=== PATIENT | male | born 1970 | race Caucasian/White ===

== ENCOUNTER 2017-01-29 21:09 | Emergency (ER) | payer SELFPAY ==
[~2017-01-29] VITALS: Ht 175.3 cm; Wt 144.0 kg
[~2017-01-29 21:09] MED LIST: AUGM875 PO; MELO15TA2 PO; ROBA750T3 PO
[2017-01-29 21:13] VITALS: BP 142/82; PULSE 97; RESP 20; TEMP 97.7; O2SAT 95
[2017-01-29] MEDS ORDERED: BUSP10TA PO (21:29)
[2017-01-29] MEDS ORDERED: SERT25TA83 PO (21:29)
[2017-01-29] MEDS ORDERED: CYCLOBENZAPRINE HCL 10 MG TAB PO ONE (22:00)
[2017-01-29] MEDS: MORPHINE SULFATE 4 MG/ML INJ IV ONE ×2 (22:00→22:11)
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
[2017-01-29] MEDS: MORPHINE SULFATE 8 MG/ML INJ ONE (22:11)
[2017-01-29] MEDS ORDERED: LORazepam 2 MG/ML VIAL IV PUSH ONE (23:00)
[2017-01-29] MEDS ORDERED: HYDROmorphone HCL PF 2 MG/ML VIAL IV PUSH ONE (23:00)
[2017-01-29 23:10] VITALS: BP 172/102; PULSE 87; RESP 18; O2SAT 95
--- NOTE | 2017-01-29 23:10 | RADRPT ---
EXAM DATE/TIME: 01/29/2017 22:10 [facility] COMPARISON: No previous studies available for comparison. INDICATIONS : Right hip pain for three days. MEDICAL HISTORY : None. SURGICAL HISTORY : None. ENCOUNTER: Initial ACUITY: 3 days PAIN SCORE: 10/10 LOCATION: Right hip. FINDINGS: Examination of the right hip was performed with AP Pelvis. The primary and secondary trabecular jennifer daryn of the femoral neck is intact. The hip joint is of normal width without significant sclerosis or bony hypertrophy. The acetabulum is grossly intact. There is calcific density adjacent to the great er trochanter on the right likely hydroxyapatite deposition. CONCLUSION: Probable calcific tendinosis right. No fractures are seen. Lonnie Vickers MD on January 29, 2017 at 23:07 Board Certified Radiologist. This report was verified electronically.
[2017-01-29] MEDS ORDERED: PRED10PA2 PO (23:23)
[2017-01-29] MEDS ORDERED: PERC5TAB12 PO (23:23)
--- NOTE | 2017-01-29 23:28 | RADRPT ---
EXAM DATE/TIME: 01/29/2017 22:25 [facility] COMPARISON: No previous studies available for comparison. INDICATIONS : Low back and hip pain with urine incontinence. RADIATION DOSE: 40.32 CTDIvol (mGy) ; Patient body habitus MEDICAL HISTORY : None SURGICAL HISTORY : None. ENCOUNTER: Initial ACUITY: 3 days PAIN SCALE: 10/10 LOCATION: Bilateral flank TECHNIQUE: Volumetric scanning of the lumbar spine was performed. Multiplanar reconstructions in the sagittal, coronal and oblique axial planes were performed. Using automated exposure control and adjustment of the mA and/or kV according to patient size, radiation dose was kept as low as reasonably achievable t o obtain optimal diagnostic quality images. DICOM format image data is available electronically for review and comparison. FINDINGS: VERTEBRAE: Normal vertebral body height. ALIGNMENT: No evidence of subluxation. T12-L1: The thecal sac has a normal diameter. No evidence of disc bulge or protrusion. The neural foramina are patent bilaterally. L1-L2: The thecal sac has a normal diameter. No evidence of disc bulge or protrusion. The neural foramina are patent bilaterally. L2-L3: The thecal sac has a normal diameter. No evidence of disc bulge or protrusion. The neural foramina are patent bilaterally. L3-L4: The thecal sac has a normal diameter. No evidence of disc bulge or protrusion. The neural foramina are patent bilaterally. L4-L5: The thecal sac has a normal diameter. No evidence of disc bulge or protrusion. The neural foramina are patent bilaterally. L5-S1: The thecal sac has a normal diameter. No evidence of disc bulge or protrusion. The neural foramina are patent bilaterally. CONCLUSION: Normal examination for a patient of this age. Lonnie Vickers MD on January 29, 2017 at 23:26 Board Certified Radiologist. This report was verified electronically.
== END 2017-01-29 23:51 | disposition home or self-care (01) ==
LOC: PHED 21:09
DX: M25.551 Pain in right hip (principal); M65.251 Calcific tendinitis, right thigh
CPT/HCPCS: 72131; 73502; 96374; 96375; 99285; J1170; J2060; J2270

== ENCOUNTER 2017-06-26 22:07 | Inpatient (IN) | payer OTHER ==
[~2017-06-26] VITALS: Ht 175.3 cm; Wt 137.5 kg
[~2017-06-26 22:07] MED LIST changes: -AUGM875 PO; +BUSP10TA PO; -MELO15TA2 PO; +PERC5TAB12 PO; +PRED10PA2 PO; -ROBA750T3 PO; +SERT25TA83 PO
[2017-06-26 22:20] VITALS: O2SAT 95
[2017-06-26] MEDS ORDERED: ONDANSETRON HCL 4 MG/2 ML VIAL ONE (22:21)
[2017-06-26] MEDS ORDERED: MORPHINE SULFATE 8 MG/ML INJ ONE (22:22)
[2017-06-26] MEDS ORDERED: SODIUM CHLOR 0.9% 1000 ML INJ 1,000 ML IV SCH (22:27)
[2017-06-26] MEDS ORDERED: MORPHINE SULFATE 4 MG/ML INJ IV PUSH ONE ×2 (22:30→22:45)
[2017-06-26] MEDS ORDERED: ceFAZolin 2 GM PREMIX 50 ML IV ONE (22:30)
[2017-06-26] MEDS ORDERED: ONDANSETRON HCL 4 MG/2 ML VIAL IV PUSH ONE (22:30)
[2017-06-26] MEDS ORDERED: ceFAZolin 2 GM PREMIX 50 ML ONE (22:31)
[2017-06-26 22:41] LABS: AUTOMATED NEUTROPHIL # 11.1 TH/MM3 (1.8-7.7); BASOPHIL # 0.1 TH/MM3 (0-0.2); BASOPHIL % 0.3 % (0.0-2.0); EOSINOPHIL # 0.2 TH/MM3 (0-0.4); EOSINOPHIL % 1.4 % (0.0-4.0); HEMATOCRIT 46.8 % (39.0-51.0); HEMOGLOBIN 15.7 GM/DL (13.0-17.0); LYMPH % 24.1 % (9.0-44.0); MEAN CELL VOLUME 79.8 FL (80.0-100.0); MEAN CORPUSCULAR HEMOGLOBIN 26.7 PG (27.0-34.0); MEAN CORPUSCULAR HGB CONC 33.5 % (32.0-36.0); MEAN PLATELET VOLUME 7.8 FL (7.0-11.0); MONO % 7.2 % (0.0-8.0); MONOCYTE # 1.2 TH/MM3 (0-0.9); PLATELET COUNT 276 TH/MM3 (150-450); RED BLOOD COUNT 5.86 MIL/MM3 (4.50-5.90); RED CELL DISTRIBUTION WIDTH 15.9 % (11.6-17.2); WHITE BLOOD COUNT 16.5 TH/MM3 (4.0-11.0)
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
[2017-06-26 22:56] LABS: PROTHROMBIN TIME - PATIENT 10.2 SEC (9.8-11.6)
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
[2017-06-26] MEDS ORDERED: IOHEXOL 350 MG/ML 10 ML VIAL (for RAD DIAG) IVCONTRAST ONE (23:00)
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
[2017-06-26] MEDS ORDERED: LIDOCAINE HCL 1% 50 ML VIAL INFIL ONE (23:30)
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
[2017-06-27] VITALS (19 sets, daily range): BP systolic 83–167; BP diastolic 44–78; PULSE 76–113; RESP 19–27; TEMP 98.1–100.9; O2SAT 87–100
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
[2017-06-27] MEDS ORDERED: HYDROmorphone HCL PF 1 MG/ML VIAL IV PUSH ONE (01:00)
[2017-06-27] MEDS ORDERED: LACTULOSE SYRUP 20 GM/30 ML CUP PO PRN (01:30)
[2017-06-27] MEDS ORDERED: SENNOSIDES 8.6 MG TAB PO PRN (01:30)
[2017-06-27] MEDS ORDERED: CHLORHEXIDINE GLUCONATE 2 % 1 PACK (2 CLOTHS) TOP PRN (01:30)
[2017-06-27] MEDS ORDERED: MAGNESIUM HYDROXIDE SUSP 30 ML CUP PO PRN (01:30)
[2017-06-27] MEDS ORDERED: ONDANSETRON HCL 4 MG/2 ML VIAL IV PUSH PRN (01:30)
[2017-06-27] MEDS ORDERED: MISCELLANEOUS NURSING INFORMATION XX SCH (01:30)
[2017-06-27] MEDS ORDERED: BISACODYL 10 MG SUPP RECTAL PRN (01:30)
[2017-06-27] MEDS ORDERED: RESP: ALBUTEROL 2.5 MG/3 ML NEB (SCH) INH ONE (01:30)
[2017-06-27] MEDS ORDERED: NALOXONE HCL 0.4 MG/ML AMP IV PUSH PRN (01:45)
[2017-06-27] MEDS ORDERED: PCA - TOTAL MG MORPHINE DELIVERED PER SHIFT SCH (01:45)
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
[2017-06-27] MEDS: MORPHINE SULFATE 30 MG/30 ML PCA IV SCH ×2 (02:54→08:06)
[2017-06-27] MEDS: SODIUM CHLOR 0.9% 1000 ML INJ 1,000 ML IV SCH ×5 (03:00→17:38)
[2017-06-27] MEDS: ACETAMINOPHEN 1000 MG/100 ML 100 ML IV SCH ×4 (03:10→19:03)
[2017-06-27] MEDS: ceFAZolin 2 GM PREMIX 50 ML IV SCH ×3 (03:11→20:23)
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
[2017-06-27] MEDS: CHLORHEXIDINE GLUCONATE 2 % 1 PACK (2 CLOTHS) TOP SCH (04:00)
[2017-06-27] MEDS: RESP: ALBUTEROL 2.5 MG/IPRATROPIUM 0.5 MG NEB (SCH) INH ×5 (04:11→21:17)
[2017-06-27] MEDS: FAMOTIDINE 20 MG/2 ML VIAL IV PUSH SCH ×2 (04:15→16:36)
--- NOTE | 2017-06-27 05:14 | RADRPT ---
EXAM DATE/TIME: 06/27/2017 03:38 [place] COMPARISON: CHEST SINGLE AP, June 26, 2017, 22:27. INDICATIONS : Evaluate for pneumonia post Trauma MEDICAL HISTORY : None. SURGICAL HISTORY : None. ENCOUNTER: Subsequent ACUITY: 1 day PAIN SCORE: 7/10 LOCATION: Bilateral chest FINDINGS: A single view of the chest demonstrates the lungs to be symmetrically aerated without evidence of mas s, infiltrate or effusion. No evidence of pneumothorax. The cardiomediastinal contours are unremark able. Osseous structures are intact. CONCLUSION: The lungs are clear. Perfecto Veloz MD on June 27, 2017 at 5:13 Board Certified Radiologist. This report was verified electronically.
[2017-06-27] MEDS: DOCUSATE SODIUM 50 MG/SENNA 8.6 MG TAB PO SCH ×2 (07:46→20:18)
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
[2017-06-27] MEDS ORDERED: LACTATED RINGER'S 1000 ML INJ 1,000 ML IV ONE (10:00)
[2017-06-27] MEDS ORDERED: MIDAZOLAM HCL 5 MG/ML VIAL (1 ML) ONE (11:00)
[2017-06-27] MEDS ORDERED: ETOMIDATE 40 MG/20 ML VIAL ONE (11:00)
[2017-06-27] MEDS ORDERED: ROCURONIUM INJ 50 MG/5 ML VIAL ONE (11:01)
--- NOTE | 2017-06-27 11:31 | PD.PROCEDR ---
Procedure Note Procedure Consent: Emergency intubation for severe hypercapneic and hypoxic respiratory failure, severe sleep apnea and rib fracture INTUBATION: The patient was put in optimal position for the procedure. Rapid sequence intubation was initiated by me using 10 milligrams of Versed IV, 20 mg Versed IV and Rocuronium 50 mg IV. Glidescope was used with #4 blade grade 1 view single attempt. Intubated with #8 ETT. Tube placement was confirmed by visualization of the tube and balloon passing through the cords, capnometry and subsequent chest x-ray. Breath sounds were equal and well aerated bilaterally postintubation. No breath sounds over stomach. Patient tolerated procedure well. Maurice Vargas MD Jun 27, 2017 11:31
[2017-06-27] MEDS ORDERED: fentaNYL DRIP 250 ML IV PRN (11:45)
[2017-06-27] MEDS: RESP: ACETYLCYSTEINE 10% 30 ML NEB NEB SCH ×3 (12:00→21:17)
[2017-06-27] MEDS ORDERED: PROPOFOL 500 MG/50 ML INJ 50 ML ONE (12:00)
[2017-06-27 12:23] LABS: HEMATOCRIT 36.6 % (39.0-51.0); HEMOGLOBIN 11.8 GM/DL (13.0-17.0); MEAN CELL VOLUME 82.4 FL (80.0-100.0); MEAN CORPUSCULAR HEMOGLOBIN 26.6 PG (27.0-34.0); MEAN CORPUSCULAR HGB CONC 32.3 % (32.0-36.0); MEAN PLATELET VOLUME 7.4 FL (7.0-11.0); PLATELET COUNT 182 TH/MM3 (150-450); RED BLOOD COUNT 4.44 MIL/MM3 (4.50-5.90); WHITE BLOOD COUNT 9.7 TH/MM3 (4.0-11.0)
[2017-06-27 12:47] LABS: ALBUMIN 2.3 GM/DL (3.4-5.0); BICARBONATE 22.8 MEQ/L (21.0-32.0); CALCIUM 7.3 MG/DL (8.5-10.1); CALCIUM-PROTEIN CORRECTED 8.6 MG/DL (8.5-10.1); CREATININE 1.19 MG/DL (0.60-1.30); TOTAL BILIRUBIN ADULT 0.4 MG/DL (0.2-1.0); TOTAL PROTEIN 4.8 GM/DL (6.4-8.2)
[2017-06-27] MEDS: KETOROLAC TROMETHAMINE 30 MG/ML (IVP) VIAL IV PUSH SCH ×3 (12:48→23:29)
[2017-06-27] MEDS: ENOXAPARIN SODIUM 40 MG/0.4 ML SYRINGE SQ SCH (12:48)
--- NOTE | 2017-06-27 12:57 | RADRPT ---
EXAM DATE/TIME: 06/27/2017 12:04 [facility] COMPARISON: CHEST SINGLE AP, June 27, 2017, 3:38. INDICATIONS : Post intubation. MEDICAL HISTORY : None. SURGICAL HISTORY : None. ENCOUNTER: Initial ACUITY: 1 day PAIN SCORE: Non-responsive. LOCATION: Bilateral chest FINDINGS: A single view of the chest demonstrates the lungs to be hypoinflated with minimal bibasilar atelectat ic changes. No confluent infiltrate or effusion. Accounting for low lung lines, the heart size is bor derline prominent but well compensated. Interval placement of an endotracheal tube with the tip appro ximately 1.5 cm above the anne. A gastric tube enters the stomach and extends off the inferior aspe ct of the image. CONCLUSION: 1. Interval intubation with the endotracheal tube approximately 1.5 cm above the anne. 2. Minimal bibasilar atelectatic changes. Competent cardiomegaly. 3. Nasogastric tube traverses the GE junction with the tip extending off the inferior aspect of the i mage. Umesh Carbone MD on June 27, 2017 at 12:54 Board Certified Radiologist. This report was verified electronically.
[2017-06-27] MEDS: PROPOFOL 1000 MG/100 ML INJ 100 ML IV PRN ×2 (13:48→18:45)
[2017-06-27] MEDS ORDERED: ETOMIDATE 20 MG/10 ML VIAL IV PUSH ONE (14:00)
[2017-06-27] MEDS ORDERED: ROCURONIUM INJ 50 MG/5 ML VIAL IV PUSH ONE (14:00)
[2017-06-27] MEDS ORDERED: MIDAZOLAM HCL 5 MG/ML VIAL (1 ML) IV PUSH ONE (14:15)
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
[2017-06-27] MEDS ORDERED: NOREPINEPHRINE-DEXTROSE DRIP 250 ML IV ONE (18:14)
--- NOTE | 2017-06-27 18:32 | PD.PROCEDR ---
Central Line Procedure REASON FOR PROCEDURE Central venous access PROCEDURE PERFORMED Central line placement: LIJ central line US guided CONSENT Informed consent for procedure was obtained and time out performed. The risks and benefits of the procedure were discussed to include but limited to bleeding , clot formation, infection, and even . ANESTHESIA Local injection of 1% Lidocaine DESCRIPTION OF THE PROCEDURE The patient was placed in supine, mild Trendelenburg position. The area was exposed and cleansed with ChloraPrep, times two. Large sterile drape was used to cover the patient, with the site exposed, under sterile conditions including cap, face mask, sterile gown, and sterile gloves. On single attempt, the introducer needle was inserted with negative pressure in syringe and venous flash was obtained. The guide wire was then advanced without any restriction and the needle was removed. The dilator was used without any complications. Using Seldinger technique the 20 cm 7F triple lumen catheter was advanced over the guide wire to a depth of 18 centimeters. The guide wire was removed. All ports were aspirated with dark venous blood return and flushed easily with sterile saline. All ports were capped. Antibiotic disc was placed around central line at puncture site. The central line was secured to the skin with two interrupted 2.0 silk sutures. The area was bandaged with sterile see- through central line bandage. RADIOLOGICAL DATA Ultrasound guidance was used to locate LIJ. COMPLICATIONS: No apparent complications ESTIMATED BLOOD LOSS: Less than 1 cc. Maurice Vargas MD Jun 27, 2017 18:32
[2017-06-27] MEDS ORDERED: TERBUTALINE INJ 1 MG/ML AMP SQ PRN (19:00)
[2017-06-27] MEDS: NOREPINEPHRINE INJ 4 MG in SODIUM CHLOR 0.9% 250 ML INJ 246 ML IV PRN ×2 (19:03→19:55)
--- NOTE | 2017-06-27 19:27 | RADRPT ---
EXAM DATE/TIME: 06/27/2017 18:44 [facility] COMPARISON: CHEST SINGLE AP, June 27, 2017, 12:04. INDICATIONS : Post central line placement. MEDICAL HISTORY : None. SURGICAL HISTORY : None. ENCOUNTER: Subsequent ACUITY: 1 day PAIN SCORE: Non-responsive. LOCATION: Bilateral chest FINDINGS: Endotracheal tube in good position. NG enters stomach. Left internal jugular central line in superior vena cava. Bilateral mostly basilar airspace disease and right perihilar airspace disease is present , increased from June 27 exam earlier today. No pneumothorax. CONCLUSION: 1. Placement of left IJ line in superior vena cava. Slight increase in right lung consolidation over the last day. Arias Jurado MD on June 27, 2017 at 19:25 Board Certified Radiologist. This report was verified electronically.
[2017-06-27] MEDS ORDERED: CHLORHEXIDINE 0.12% (ORAL KIT) 15 ML CUP MT SCH (20:00)
[2017-06-28] VITALS (21 sets, daily range): BP systolic 100–124; BP diastolic 51–68; PULSE 72–90; RESP 20; TEMP 97.9–101.1; O2SAT 95–100
[2017-06-28] MEDS: RESP: ACETYLCYSTEINE 10% 30 ML NEB NEB SCH ×7 (00:04→23:27)
[2017-06-28] MEDS: CHLORHEXIDINE GLUCONATE 2 % 1 PACK (2 CLOTHS) TOP SCH (00:05)
[2017-06-28] MEDS: RESP: ALBUTEROL 2.5 MG/IPRATROPIUM 0.5 MG NEB (SCH) INH ×7 (00:05→23:27)
[2017-06-28] MEDS: NOREPINEPHRINE INJ 4 MG in SODIUM CHLOR 0.9% 250 ML INJ 246 ML IV PRN (02:37)
[2017-06-28] MEDS: PROPOFOL 1000 MG/100 ML INJ 100 ML IV PRN ×3 (02:37→08:04)
[2017-06-28 05:20] LABS: AUTOMATED NEUTROPHIL # 15.1 TH/MM3 (1.8-7.7); BASOPHIL # 0.2 TH/MM3 (0-0.2); EOSINOPHIL % 0.1 % (0.0-4.0); HEMATOCRIT 38.5 % (39.0-51.0); HEMOGLOBIN 12.9 GM/DL (13.0-17.0); LYMPH % 9.5 % (9.0-44.0); LYMPHOCYTE # 1.8 TH/MM3 (1.0-4.8); MEAN CELL VOLUME 80.6 FL (80.0-100.0); MEAN CORPUSCULAR HGB CONC 33.5 % (32.0-36.0); MEAN PLATELET VOLUME 7.8 FL (7.0-11.0); MONOCYTE # 1.5 TH/MM3 (0-0.9); NEUT % 81.4 % (16.0-70.0); PLATELET COUNT 222 TH/MM3 (150-450); RED BLOOD COUNT 4.78 MIL/MM3 (4.50-5.90); RED CELL DISTRIBUTION WIDTH 15.5 % (11.6-17.2); WHITE BLOOD COUNT 18.5 TH/MM3 (4.0-11.0)
[2017-06-28] MEDS: KETOROLAC TROMETHAMINE 30 MG/ML (IVP) VIAL IV PUSH SCH ×3 (05:24→18:00)
[2017-06-28] MEDS: ceFAZolin 2 GM PREMIX 50 ML IV SCH ×3 (05:28→20:04)
[2017-06-28] MEDS: SODIUM CHLOR 0.9% 1000 ML INJ 1,000 ML IV SCH ×2 (05:28→17:00)
[2017-06-28] MEDS: FAMOTIDINE 20 MG/2 ML VIAL IV PUSH SCH ×2 (05:28→16:22)
[2017-06-28 05:42] LABS: BICARBONATE 22.1 MEQ/L (21.0-32.0); CALCIUM 7.5 MG/DL (8.5-10.1); CREATININE 1.32 MG/DL (0.60-1.30)
--- NOTE | 2017-06-28 06:16 | RADRPT ---
EXAM DATE/TIME: 06/28/2017 04:56 [facility] COMPARISON: CHEST SINGLE AP, June 27, 2017, 18:44. INDICATIONS : Short of breath. MEDICAL HISTORY : None. SURGICAL HISTORY : None. ENCOUNTER: Subsequent ACUITY: 2 days PAIN SCORE: Non-responsive. LOCATION: Bilateral chest FINDINGS: ET tube tip slightly above the level of the anne. Gastric tube and left central line stable. Ther e is persisting consolidation left lower lung and patchy infiltrates in the right perihilar and right infrahilar region. CONCLUSION: 1. Persistent bilateral infiltrates. 2. ETT tip is approximately 1 cm above the anne. Perfecto Veloz MD on June 28, 2017 at 6:14 Board Certified Radiologist. This report was verified electronically.
[2017-06-28] MEDS: CHLORHEXIDINE 0.12% (ORAL KIT) 15 ML CUP MT SCH ×2 (08:00→20:04)
[2017-06-28] MEDS: MIDAZOLAM 100 MG/100 ML INJ 100 ML IV PRN (08:03)
--- NOTE | 2017-06-28 08:10 | PD.ORT.PN ---
Subjective Subjective Remarks Intubated but stable Objective Vitals Vital Signs Date Time Temp Pulse Resp B/P (MAP) Pulse Ox O2 Delivery O2 Flow Rate FiO2 06/28/17 06:00 87 06/28/17 05:01 96 50 06/28/17 04:00 99.7 81 20 100/53 (69) 97 06/28/17 04:00 50 06/28/17 04:00 81 06/28/17 03:56 96 50 06/28/17 02:37 92 96/50 06/28/17 02:00 90 06/28/17 00:05 95 50 06/28/17 00:00 50 06/28/17 00:00 90 06/28/17 00:00 101.1 90 20 103/51 (68) 95 06/27/17 22:16 100 100 06/27/17 22:00 84 06/27/17 20:48 100 50 06/27/17 20:00 100.9 82 20 83/44 (57) 100 06/27/17 20:00 50 06/27/17 20:00 76 06/27/17 19:55 77 87/48 06/27/17 19:03 84 85/51 06/27/17 19:00 100 Mechanical Ventilator 50 06/27/17 18:00 90 06/27/17 16:23 100 50 06/27/17 16:00 98.1 86 20 84/48 (60) 100 06/27/17 16:00 50 06/27/17 16:00 86 06/27/17 14:00 90 06/27/17 12:18 100 50 06/27/17 12:00 112 06/27/17 12:00 98.1 112 20 167/70 (102) 97 06/27/17 12:00 50 06/27/17 11:40 95 100 06/27/17 10:20 50 06/27/17 10:00 98 06/27/17 09:23 99 45 06/27/17 08:11 26 I/O 06/27/17 06/27/17 06/27/17 06/28/17 06/28/17 06/28/17 07:00 15:00 23:00 07:00 15:00 23:00 Intake Total 1200 ml 1150 ml 3181 ml 2319 ml Output Total 300 ml 850 ml 900 ml Balance 900 ml 1150 ml 2331 ml 1419 ml Intake IV Total 1200 ml 1150 ml 3181 ml 2319 ml Output Urine Total 300 ml 600 ml 750 ml Gastric Drainage Total 250 ml 150 ml # Bowel Movements 0 0 0 Result Diagram: 06/28/17 0500 06/28/17 0500 Imaging Last 24 hours Impressions Chest X-Ray 06/27/17 0600 Signed Impressions: Service Date/Time: Tuesday, June 27, 2017 03:38 - CONCLUSION: The lungs are clear. Perfecto Veloz MD Knee X-Ray 06/27/17 0000 Signed Impressions: Service Date/Time: Tuesday, June 27, 2017 00:49 - CONCLUSION: 1. Osseous structures about the knee are grossly intact. 2. Fracture mid shaft of the fibula, partially included in the [id number]. Perfecto Veloz MD Thoracic Spine CT 06/26/172226 Signed Impressions: Service Date/Time: Monday, June 26, 2017 23:02 - CONCLUSION: Negative trauma CT of the thoracic spine. Perfecto Veloz MD Pelvis X-Ray 06/26/172226 Signed Impressions: Service Date/Time: Monday, June 26, 2017 22:27 - CONCLUSION: 1. The bony pelvic ring is grossly intact. Perfecto Veloz MD Lumbar Spine CT 06/26/172226 Signed Impressions: Service Date/Time: Monday, June 26, 2017 23:02 - CONCLUSION: Negative trauma CT lumbar spine. Perfecto Veloz MD Head CT 06/26/172226 Signed Impressions: Service Date/Time: Monday, June 26, 2017 22:57 - CONCLUSION: 1. No acute findings in the brain. Perfecto Veloz MD Chest X-Ray 06/26/172226 Signed Impressions: Service Date/Time: Monday, June 26, 2017 22:27 - CONCLUSION: Enlargement of the cardiac silhouette and superior mediastinum. Some of this may be projectional on this supine trauma chest x-ray. The patient is scheduled for CT examination of the chest. Sam Hsu MD Chest CT 06/26/172226 Signed Impressions: Service Date/Time: Monday, June 26, 2017 23:02 - CONCLUSION: 1. Minimally displaced fractures of the right 8 through 10th ribs. 2. Minimal bibasilar atelectasis. No evidence of pneumothorax. Perfecto Veloz MD Cervical Spine CT 06/26/172226 Signed Impressions: Service Date/Time: Monday, June 26, 2017 22:57 - CONCLUSION: Straightening of the cervical lordosis. Otherwise negative CT cervical spine. Perfecto Veloz MD Abdomen/Pelvis CT 06/26/172226 Signed Impressions: Service Date/Time: Monday, June 26, 2017 23:02 - CONCLUSION: 1. Mild soft tissue contusion subcutaneous soft tissues anterior abdominal wall. 2. Fat-containing left inguinal hernia. 3. Otherwise negative trauma CT abdomen/pelvis with contrast. Perfecto Veloz MD Objective Remarks LUE: +short arm splint. intact. NVI LLE: +short leg splint. intact. NVI RLE: +swelling and pain over lateral ankle. pain with motion of knee. NVI Assessment & Plan Assessment and Plan 1) Left Radial Styloid Fx - nonop -NWB -maintain splint -if maintains position, should do well with nonop treatment 2) Left Medial Malleolus fx with Syndesmosis Disruption and Fibula Fx -npo -maintain splint -NWB -plan for surgery today -sign consents 3) Right Ankle and knee pain -equivocal fx of right distal femur on xray. CT scan to g[facility]rudis -equivocal Talus fx on xray. CT scan of ankle today to Erik Bell Jr. Jun 28, 2017 08:10
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
[2017-06-28] MEDS: DOCUSATE SODIUM 50 MG/SENNA 8.6 MG TAB PO SCH ×2 (09:00→20:04)
[2017-06-28] MEDS ORDERED: LACTATED RINGER'S 1000 ML INJ 1,000 ML IV ONE (10:15)
[2017-06-28] MEDS: ENOXAPARIN SODIUM 40 MG/0.4 ML SYRINGE SQ SCH (11:00)
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
[2017-06-28] MEDS: fentaNYL DRIP 250 ML IV PRN (17:01)
--- NOTE | 2017-06-28 17:01 | OTSOAPIP ---
TIME SESSION COMPLETED: AM TREATMENT TIME: 0 MINS. CHART REVIEWED. ATTEMPTED TO SEE FOR OT ASSESSMENT, HOWEVER IS TO HAVE SURGERY AND UNAVAILABLE. WILL FOLLOW NEXT DAY. Therapist: RIVAS DALE OT/Ronan Signature on file
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
[2017-06-29] VITALS (16 sets, daily range): BP systolic 101–154; BP diastolic 56–80; PULSE 76–100; RESP 20; TEMP 98.2–99.9; O2SAT 93–100
[2017-06-29] MEDS: KETOROLAC TROMETHAMINE 30 MG/ML (IVP) VIAL IV PUSH SCH ×4 (00:12→17:59)
[2017-06-29] MEDS: MIDAZOLAM 100 MG/100 ML INJ 100 ML IV PRN ×2 (01:12→20:40)
[2017-06-29] MEDS: SODIUM CHLOR 0.9% 1000 ML INJ 1,000 ML IV SCH ×3 (02:00→23:36)
[2017-06-29] MEDS: RESP: ALBUTEROL 2.5 MG/IPRATROPIUM 0.5 MG NEB (SCH) INH ×6 (02:59→21:43)
[2017-06-29] MEDS: RESP: ACETYLCYSTEINE 10% 30 ML NEB NEB SCH ×6 (03:00→21:44)
[2017-06-29] MEDS: CHLORHEXIDINE GLUCONATE 2 % 1 PACK (2 CLOTHS) TOP SCH (04:00)
[2017-06-29 04:17] LABS: AUTOMATED NEUTROPHIL # 5.8 TH/MM3 (1.8-7.7); BASOPHIL # 0.1 TH/MM3 (0-0.2); BASOPHIL % 0.7 % (0.0-2.0); EOSINOPHIL # 0.2 TH/MM3 (0-0.4); EOSINOPHIL % 1.9 % (0.0-4.0); HEMOGLOBIN 10.9 GM/DL (13.0-17.0); LYMPH % 15.1 % (9.0-44.0); LYMPHOCYTE # 1.2 TH/MM3 (1.0-4.8); MEAN CELL VOLUME 80.6 FL (80.0-100.0); MEAN CORPUSCULAR HEMOGLOBIN 26.5 PG (27.0-34.0); MEAN CORPUSCULAR HGB CONC 32.9 % (32.0-36.0); MEAN PLATELET VOLUME 7.4 FL (7.0-11.0); MONO % 8.4 % (0.0-8.0); MONOCYTE # 0.7 TH/MM3 (0-0.9); NEUT % 73.9 % (16.0-70.0); PLATELET COUNT 167 TH/MM3 (150-450); RED CELL DISTRIBUTION WIDTH 16.2 % (11.6-17.2); WHITE BLOOD COUNT 7.9 TH/MM3 (4.0-11.0)
[2017-06-29] MEDS: ceFAZolin 2 GM PREMIX 50 ML IV SCH ×3 (04:19→20:40)
[2017-06-29] MEDS: FAMOTIDINE 20 MG/2 ML VIAL IV PUSH SCH ×2 (04:19→16:15)
[2017-06-29 04:52] LABS: ALBUMIN 2.1 GM/DL (3.4-5.0); AST (GOT) 79 U/L (15-37); BICARBONATE 24.1 MEQ/L (21.0-32.0); BLOOD UREA NITROGEN 18 MG/DL (7-18); CALCIUM 7.6 MG/DL (8.5-10.1); CHLORIDE 111 MEQ/L (98-107); CREATININE 0.98 MG/DL (0.60-1.30); GLOMERULAR FILTRATION RATE 83 ML/MIN (>89); GLUCOSE,RANDOM 96 MG/DL (74-106); SODIUM (NA) 142 MEQ/L (136-145)
[2017-06-29 04:53] LABS: ALT (GPT) 37 U/L (12-78)
[2017-06-29 04:55] LABS: ALKALINE PHOSPHATASE 44 U/L (45-117); TOTAL BILIRUBIN ADULT 0.5 MG/DL (0.2-1.0); TOTAL PROTEIN 5.3 GM/DL (6.4-8.2)
--- NOTE | 2017-06-29 05:43 | RADRPT ---
EXAM DATE/TIME: 06/29/2017 04:52 [facility] COMPARISON: CHEST SINGLE AP, June 28, 2017, 4:56. INDICATIONS : Shortness of breath. MEDICAL HISTORY : Spinal stenosis SURGICAL HISTORY : None. ENCOUNTER: Subsequent ACUITY: 3 days PAIN SCORE: Non-responsive. LOCATION: Bilateral chest FINDINGS: ET tube tip 1.3 cm above the anne. Cardiomegaly, stable the consolidation in the medial lower lung s bilaterally similar to prior. There is a greater degree of loss of the left hemidiaphragm compared to prior. CONCLUSION: 1. Increasing consolidation left lower lung. 2. ET tube tip is 1.3 cm above the anne and needs to be withdrawn 1 cm. Perfecto Veloz MD on June 29, 2017 at 5:41 Board Certified Radiologist. This report was verified electronically.
[2017-06-29] MEDS: fentaNYL DRIP 250 ML IV PRN ×2 (06:20→18:13)
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
[2017-06-29] MEDS: CHLORHEXIDINE 0.12% (ORAL KIT) 15 ML CUP MT SCH ×2 (07:58→20:00)
[2017-06-29] MEDS: DOCUSATE SODIUM 50 MG/SENNA 8.6 MG TAB PO SCH (08:23)
[2017-06-29] MEDS: LACTULOSE SYRUP 20 GM/30 ML CUP PO SCH (09:00)
[2017-06-29] MEDS: ENOXAPARIN SODIUM 40 MG/0.4 ML SYRINGE SQ SCH (10:29)
[2017-06-29] MEDS ORDERED: ROCURONIUM INJ 50 MG/5 ML SYRINGE IV PUSH ONE (12:00)
[2017-06-29] MEDS ORDERED: ceFAZolin INJ 1,000 MG VIAL IV ONE ×2 (12:00→16:30)
[2017-06-29] MEDS ORDERED: ONDANSETRON HCL 4 MG/2 ML VIAL IV PUSH ONE (12:00)
[2017-06-29] MEDS ORDERED: GENTAMICIN SULFATE 80 MG/2 ML VIAL ONE (14:45)
[2017-06-29] MEDS ORDERED: ceFAZolin INJ 1,000 MG VIAL ONE (14:54)
[2017-06-29] MEDS ORDERED: VANCOMYCIN HCL 1000 MG VIAL ONE (14:54)
[2017-06-29] MEDS ORDERED: SODIUM CHLOR 0.9% 250 ML INJ 250 ML ONE (14:54)
[2017-06-29] MEDS ORDERED: RESP: ALBUTEROL 2.5 MG/3 ML NEB (PRN) ONE ×2 (16:25→16:33)
[2017-06-29] MEDS ORDERED: ceFAZolin 1,000 MG/NS 100 ML IV ONE ×2 (16:30)
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
--- NOTE | 2017-06-29 17:28 | PD.OP ---
cc: Edgar Venegas MD Operative Report Date of Surgery: Jun 29, 2017 Preoperative Diagnosis: Left ankle medial malleolus, and posterior malleolus fracture with syndesmosis tear. Left lower leg midshaft fibular shaft fracture. Postoperative Diagnosis: Same Procedure: Left ankle open reduction internal fixation of bimalleolar (medial malleolus and posterior malleolus) fractures. Left ankle separate incisions for open reduction and internal fixation of distal tibiofibular ligament (syndesmosis). Anesthesia: Gen. Surgeon: Edgar Venegas Stage Electrician Helper(s): Hospital staff Operation and Findings: This patient was initially seen by my partner Dr. Henrique Kern. He did discuss with the patient's the risks and benefits of surgical management for an injury to the left ankle. He has a medial malleolus fracture with a posterior Gee fracture and rupture of the syndesmosis and midshaft fibula fracture. In order to help expedite the care for this patient Dr. Kern had asked if I could surgically manage the patient. I contacted the patient's Fany on the telephone and I obtained verbal consent to move forward with surgical management today. She felt comfortable with understanding the risks and benefits of surgical management. The patient was already intubated and in the intensive care unit. He was brought to the operative theater. He had been on standing antibiotics, Ancef. We did also give him a dose of vancomycin. Tourniquet time: 0 minutes at 250 mmHg of pressure Estimated blood loss: 20 cc After the appropriate anesthesia was administered, the patient's leg was prepped and draped in the usual sterile fashion. We did not make use of the tourniquet that was applied to the leg. We made an incision on the medial aspect of the ankle. We identified that the fracture was significantly displaced. We anatomically reduced the medial malleolus fracture and held this provisionally with a fracture reduction clamp. We placed 2 guidewires in a parallel fashion up the medial malleolus. The medial malleolus remained anatomic during this procedure. We measured the appropriate screws. 2 individual Synthes 4.0 stainless steel partially threaded, long thread, cannulated screws were placed. Both had good purchase. The fracture remained in good position. This also anatomically reduce the mortise which was previously the dislocating due to the other associated injuries. This also helped reduce the posterior malleolus fracture into much better position than previously. We decided to move forward with an ORIF of the posterior malleolus since it was a large portion of the fracture pattern. We used percutaneous technique using guidewires and protective sheaths to place 2 anterior to posterior guidewires for placement of 2 individual Synthes 4.0 short threaded stainless steel screws from anterior to posterior. Both had very good purchase. The first screw helped reduce the fracture and compress it even further. Based on the original imaging we decided to move forward with syndesmotic screws. We made 2 further incisions on the lateral aspect of the ankle we held the syndesmosis in anatomic position. We started with a single 4.0 Synthes stainless steel screw, noncannulated. We drilled 3 cortices to include both fibula cortices and 1 tibia cortices with the 4.0 drill bit and then we downsized through the last cortices in order to use that screw to obtain compression. We had excellent purchase. This was done with the ankle in neutral position. We placed another same size screw more proximal but the screw was not done in this compression technique. The mortise was anatomic and stable at this point to stress testing. We took stress testing images and saved these as well. We thoroughly irrigated the wounds. We closed the medial wounds with 2-0 Vicryl and 3-0 nylon. The other wounds were closed with 3-0 nylon. We took final fluoroscopic imaging of the ankle, including an AP, lateral, and mortise view. The fracture and the mortise were anatomic. We found no intra- articular penetration of the screws. The patient had full range of motion of the ankle with no crepitus. No instability was noted. The leg was dressed and a splint was applied. The postoperative plan is for nonweightbearing to the extremity. The patient will require a staged, planned removal of the syndesmotic screws approximately 3 months from now. The patient's understands this. We have placed the patient on Lovenox for DVT prophylaxis since he is nonweightbearing on both lower extremities as he has other injuries to the other leg. Edgar Venegas MD Jun 29, 2017 17:28
[2017-06-29] MEDS ORDERED: NORC5TAB PO (17:29)
[2017-06-29] MEDS ORDERED: ASPI-146 PO (17:31)
[2017-06-29] MEDS ORDERED: ENOX40IN SQ (17:31)
--- NOTE | 2017-06-29 17:36 | RADRPT ---
EXAM DATE/TIME: 06/29/2017 16:32 [facility] COMPARISON: CT ANKLE RIGHT W/O CONTRAST, June 28, 2017, 17:28. INDICATIONS : ORIF lt ankle. MEDICAL HISTORY : None. SURGICAL HISTORY : None. ENCOUNTER: Subsequent ACUITY: 1 day PAIN SCORE: Non-responsive. LOCATION: Left Ankle FINDINGS: 4 intraoperative fluoroscopic images of the left ankle demonstrate interval compression screw fixatio n of the fibula and tibia. Hardware appears intact and well positioned. Joint spaces appear near janki omic. There is redemonstration of cortical irregularity involving the talus consistent with the commi nuted talar fracture noted on recent CT exam. Remainder of exam is unchanged. CONCLUSION: 1. Status post left ankle ORIF, as above. Erasto Gonzales MD on June 29, 2017 at 17:25 Board Certified Radiologist. This report was verified electronically.
[2017-06-30] VITALS (22 sets, daily range): BP systolic 109–160; BP diastolic 60–79; PULSE 79–131; RESP 18–20; TEMP 99.9–101.1; O2SAT 89–100
[2017-06-30] MEDS: DOCUSATE SODIUM 50 MG/SENNA 8.6 MG TAB PO SCH ×3 (00:54→21:02)
[2017-06-30] MEDS: KETOROLAC TROMETHAMINE 30 MG/ML (IVP) VIAL IV PUSH SCH ×3 (00:54→12:56)
[2017-06-30] MEDS: RESP: ALBUTEROL 2.5 MG/IPRATROPIUM 0.5 MG NEB (SCH) INH ×8 (01:12→23:53)
[2017-06-30] MEDS: CHLORHEXIDINE GLUCONATE 2 % 1 PACK (2 CLOTHS) TOP SCH (04:00)
[2017-06-30 04:03] LABS: AUTOMATED NEUTROPHIL # 4.8 TH/MM3 (1.8-7.7); BASOPHIL % 0.2 % (0.0-2.0); EOSINOPHIL # 0.2 TH/MM3 (0-0.4); EOSINOPHIL % 2.5 % (0.0-4.0); HEMATOCRIT 30.2 % (39.0-51.0); HEMOGLOBIN 10.1 GM/DL (13.0-17.0); LYMPH % 15.9 % (9.0-44.0); LYMPHOCYTE # 1.1 TH/MM3 (1.0-4.8); MEAN CELL VOLUME 80.3 FL (80.0-100.0); MEAN CORPUSCULAR HEMOGLOBIN 26.9 PG (27.0-34.0); MEAN CORPUSCULAR HGB CONC 33.5 % (32.0-36.0); MEAN PLATELET VOLUME 7.7 FL (7.0-11.0); MONO % 8.5 % (0.0-8.0); MONOCYTE # 0.6 TH/MM3 (0-0.9); NEUT % 72.9 % (16.0-70.0); PLATELET COUNT 175 TH/MM3 (150-450); RED BLOOD COUNT 3.77 MIL/MM3 (4.50-5.90); RED CELL DISTRIBUTION WIDTH 16.5 % (11.6-17.2); WHITE BLOOD COUNT 6.6 TH/MM3 (4.0-11.0)
[2017-06-30 04:22] LABS: ALT (GPT) 32 U/L (12-78); AST (GOT) 64 U/L (15-37); BICARBONATE 26.8 MEQ/L (21.0-32.0); BLOOD UREA NITROGEN 20 MG/DL (7-18); CALCIUM 7.6 MG/DL (8.5-10.1); CHLORIDE 113 MEQ/L (98-107); CREATININE 1.04 MG/DL (0.60-1.30); GLOMERULAR FILTRATION RATE 78 ML/MIN (>89); GLUCOSE,RANDOM 85 MG/DL (74-106); SODIUM (NA) 145 MEQ/L (136-145)
--- NOTE | 2017-06-30 04:23 | RADRPT ---
EXAM DATE/TIME: 06/30/2017 02:53 [facility] COMPARISON: CHEST SINGLE AP, June 29, 2017, 4:52. INDICATIONS : Short of breath. MEDICAL HISTORY : Spinal stenosis. SURGICAL HISTORY : None. ENCOUNTER: Subsequent ACUITY: 4 - 6 days PAIN SCORE: Non-responsive. LOCATION: Bilateral chest FINDINGS: ET tube tip 2 cm above the anne. Left jugular central line projects over the innominate vein. Den se consolidation left lower lung with loss of delineation left hemidiaphragm is similar appearance to prior examination. There is new hazy opacity in the right lower lung suggesting pleural effusion. Stable cardiomegaly. CONCLUSION: Stable consolidation left lower lung. Perfecto Veloz MD on June 30, 2017 at 4:20 Board Certified Radiologist. This report was verified electronically.
[2017-06-30 04:25] LABS: ALKALINE PHOSPHATASE 41 U/L (45-117); TOTAL BILIRUBIN ADULT 0.5 MG/DL (0.2-1.0); TOTAL PROTEIN 5.3 GM/DL (6.4-8.2)
[2017-06-30] MEDS: RESP: ACETYLCYSTEINE 10% 30 ML NEB NEB SCH ×7 (05:07→23:53)
[2017-06-30] MEDS: ceFAZolin 2 GM PREMIX 50 ML IV SCH ×3 (05:30→21:02)
[2017-06-30] MEDS: FAMOTIDINE 20 MG/2 ML VIAL IV PUSH SCH (05:31)
[2017-06-30] MEDS: fentaNYL DRIP 250 ML IV PRN ×2 (05:31→18:17)
[2017-06-30] MEDS ORDERED: FUROSEMIDE 40 MG/4 ML VIAL IV PUSH STA (08:21)
[2017-06-30] MEDS: CHLORHEXIDINE 0.12% (ORAL KIT) 15 ML CUP MT SCH ×2 (08:50→21:02)
[2017-06-30] MEDS: LACTULOSE SYRUP 20 GM/30 ML CUP PO SCH (08:50)
[2017-06-30] MEDS ORDERED: DEXMEDETOMIDINE INJ 200 MCG in SODIUM CHLORIDE 0.9% INJ 50 ML IV PRN (09:30)
[2017-06-30] MEDS ORDERED: DEXMEDETOMIDINE INJ 400 MCG in SODIUM CHLORIDE 0.9% INJ 96 ML IV PRN (10:15)
[2017-06-30] MEDS ORDERED: ROCURONIUM INJ 50 MG/5 ML VIAL ONE ×2 (10:44→16:42)
[2017-06-30] MEDS: DEXMEDETOMIDINE INJ 200 MCG in SODIUM CHLORIDE 0.9% INJ 50 ML IV PRN (11:18)
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
--- NOTE | 2017-06-30 11:24 | PD.PROCEDR ---
Procedure Note Procedure Consent: Emergency intubation for severe hypoxic respiratory failure, subsequent to self extubation INTUBATION: The patient was put in optimal position for the procedure. Rapid sequence intubation was initiated by me using 10 milligrams of Versed IV, and Rocuronium 50 mg IV. DL was used with Mac 4 blade grade 1 view single attempt. Intubated with #8 ETT. (Direct laryngoscopy made slightly difficult due to morbid obesity with large neck and tongue/soft tissue and comparatively small mouth opening). Tube placement was confirmed by visualization of the tube and balloon passing through the cords, capnometry and subsequent chest x-ray. Breath sounds were equal and well aerated bilaterally postintubation. No breath sounds over stomach. Patient tolerated procedure well. Maurice Vargas MD Jun 30, 2017 11:24
--- NOTE | 2017-06-30 12:12 | RADRPT ---
EXAM DATE/TIME: 06/30/2017 11:09 [place] COMPARISON: CHEST SINGLE AP, June 30, 2017, 2:53. INDICATIONS : Reintubation MEDICAL HISTORY : spinal stenosis SURGICAL HISTORY : None. ENCOUNTER: Initial ACUITY: 4 - 6 days PAIN SCORE: Non-responsive. LOCATION: Bilateral chest FINDINGS: An endotracheal tube has its tip 1 cm above the anne. A left internal jugular central line has its tip in the superior vena cava. No pneumothorax is noted. Moderate pulmonary vascular congestion is no gemini. The heart is enlarged. No focal alveolar consolidation is noted. CONCLUSION: 1. Endotracheal tube has its tip 1 cm above the anne. 2. Moderate pulmonary vascular congestion. 3. Cardiomegaly. Dawson Sutton MD on June 30, 2017 at 12:07 Board Certified Radiologist. This report was verified electronically.
[2017-06-30] MEDS: SODIUM CHLOR 0.9% 1000 ML INJ 1,000 ML IV SCH (12:56)
--- NOTE | 2017-06-30 13:19 | PD.ORT.PN ---
Subjective Post Op Day #: 1 Subjective Remarks Patient is intubated and sedated. at bedside. Patient was being weaned off of the vent and onto bipap but became very agitated dislodging his vent. Patient then became SOB. Patient was extubated and reintubated. Patient placed back on vent. Objective Vitals Vital Signs Date Time Temp Pulse Resp B/P (MAP) Pulse Ox O2 Delivery O2 Flow Rate FiO2 06/30/17 12:00 101.1 94 20 115/60 (78) 100 06/30/17 12:00 94 06/30/17 12:00 40 06/30/17 11:00 101.0 131 20 160/65 (96) 100 06/30/17 10:50 89 100 06/30/17 10:45 40 06/30/17 10:00 102 06/30/17 09:02 40 06/30/17 09:00 40 06/30/17 08:21 99 40 06/30/17 08:00 101.1 94 20 115/60 (78) 92 06/30/17 08:00 100.8 80 20 109/79 (89) 100 06/30/17 08:00 40 06/30/17 08:00 84 06/30/17 07:30 Mechanical Ventilator 40 06/30/17 06:31 20 06/30/17 06:00 84 06/30/17 05:08 97 40 06/30/17 04:00 89 06/30/17 04:00 40 06/30/17 04:00 100.0 83 20 125/62 (83) 100 06/30/17 02:00 84 06/30/17 00:29 97 40 06/30/17 00:00 99.9 87 20 137/62 (87) 100 06/30/17 00:00 40 06/30/17 00:00 89 06/29/17 22:20 85 06/29/17 21:45 100 40 06/29/17 20:00 40 06/29/17 20:00 89 06/29/17 20:00 89 06/29/17 20:00 99.9 89 20 132/61 (84) 100 06/29/17 20:00 99.9 87 20 137/62 (87) 100 06/29/17 20:00 40 06/29/17 19:00 Mechanical Ventilator 40 06/29/17 18:00 40 06/29/17 18:00 98.2 100 20 154/80 (104) 100 06/29/17 18:00 100 06/29/17 17:29 93 40 06/29/17 14:00 90 I/O 06/29/17 06/29/17 06/29/17 06/30/17 06/30/17 06/30/17 07:00 15:00 23:00 07:00 15:00 23:00 Intake Total 1050 ml 1707 ml 50 ml Output Total 975 ml 930 ml 1150 ml Balance -975 ml 1050 ml 777 ml -1150 ml 50 ml Intake IV Total 1050 ml 1257 ml 50 ml Other 450 ml Output Urine Total 425 ml 800 ml 650 ml Gastric Drainage Total 550 ml 100 ml 500 ml Estimated Blood Loss 30 ml # Bowel Movements 0 0 Result Diagram: 06/30/17 0340 06/30/17 0340 Imaging Last 24 hours Impressions Chest X-Ray 06/27/17 0600 Signed Impressions: Service Date/Time: Tuesday, June 27, 2017 03:38 - CONCLUSION: The lungs are clear. Perfecto Veloz MD Knee X-Ray 06/27/17 0000 Signed Impressions: Service Date/Time: Tuesday, June 27, 2017 00:49 - CONCLUSION: 1. Osseous structures about the knee are grossly intact. 2. Fracture mid shaft of the fibula, partially included in the [id number]. Perfecto Veloz MD Thoracic Spine CT 06/26/172226 Signed Impressions: Service Date/Time: Monday, June 26, 2017 23:02 - CONCLUSION: Negative trauma CT of the thoracic spine. Perfecto Veloz MD Pelvis X-Ray 06/26/172226 Signed Impressions: Service Date/Time: Monday, June 26, 2017 22:27 - CONCLUSION: 1. The bony pelvic ring is grossly intact. Perfecto Veloz MD Lumbar Spine CT 06/26/172226 Signed Impressions: Service Date/Time: Monday, June 26, 2017 23:02 - CONCLUSION: Negative trauma CT lumbar spine. Perfecto Veloz MD Head CT 06/26/172226 Signed Impressions: Service Date/Time: Monday, June 26, 2017 22:57 - CONCLUSION: 1. No acute findings in the brain. Perfecto Veloz MD Chest X-Ray 06/26/172226 Signed Impressions: Service Date/Time: Monday, June 26, 2017 22:27 - CONCLUSION: Enlargement of the cardiac silhouette and superior mediastinum. Some of this may be projectional on this supine trauma chest x-ray. The patient is scheduled for CT examination of the chest. Sam Hsu MD Chest CT 06/26/172226 Signed Impressions: Service Date/Time: Monday, June 26, 2017 23:02 - CONCLUSION: 1. Minimally displaced fractures of the right 8 through 10th ribs. 2. Minimal bibasilar atelectasis. No evidence of pneumothorax. Perfecto Veloz MD Cervical Spine CT 06/26/172226 Signed Impressions: Service Date/Time: Monday, June 26, 2017 22:57 - CONCLUSION: Straightening of the cervical lordosis. Otherwise negative CT cervical spine. Perfecto Veloz MD Abdomen/Pelvis CT 06/26/172226 Signed Impressions: Service Date/Time: Monday, June 26, 2017 23:02 - CONCLUSION: 1. Mild soft tissue contusion subcutaneous soft tissues anterior abdominal wall. 2. Fat-containing left inguinal hernia. 3. Otherwise negative trauma CT abdomen/pelvis with contrast. Perfecto Veloz MD Objective Remarks LUE: +short arm splint. intact. NVI LLE: Patient's splint and dressings are C/D/I. BCR X 5. Minimal swelling to foot and toes. Foot and toes are warm RLE: Patient's splint and dressings are C/D/I. BCR X 5. Minimal swelling to foot and toes. Foot and toes are warm Patient on Vent. Assessment & Plan Ortho Post Op Day #: 1 Problem List: Assessment and Plan 1) Left Radial Styloid Fx - nonop -NWB -maintain splint -if maintains position, should do well with nonop treatment 2) POD #1: Left ankle open reduction internal fixation of bimalleolar (medial malleolus and posterior malleolus) fractures. Left ankle separate incisions for open reduction and internal fixation of distal tibiofibular ligament ( syndesmosis). -NWB -Lovenox for DVT prophylaxis -Maintain splint 3) Right Knee Pain -CT scans negative for fracture 4) Right Talus Fx - nonop -CT scan show lateral process fx of talus. well aligned -should do well with nonsurgical management -maintain splint -NWB F/U in the office in 1-2 weeks post discharge with Dr[address] Venegas or RAMOS Kirk in the office. Jamel Knight Jun 30, 2017 13:19
[2017-06-30] MEDS: ENOXAPARIN SODIUM 40 MG/0.4 ML SYRINGE SQ SCH (16:20)
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
[2017-06-30] MEDS: CISATRACURIUM INJ 100 MG in SODIUM CHLOR 0.9% 250 ML INJ 250 ML IV PRN ×2 (18:17→22:13)
[2017-06-30] MEDS: FAMOTIDINE 20 MG TAB PO SCH (21:02)
[2017-06-30] MEDS: MIDAZOLAM 100 MG/100 ML INJ 100 ML IV PRN (23:58)
[2017-07-01] VITALS (16 sets, daily range): BP systolic 120–141; BP diastolic 60–69; PULSE 78–87; RESP 15–18; TEMP 99.3–100.4; O2SAT 97–100
[2017-07-01] MEDS: fentaNYL DRIP 250 ML IV PRN ×2 (02:33→12:41)
[2017-07-01] MEDS: ceFAZolin 2 GM PREMIX 50 ML IV SCH ×2 (02:33→11:29)
[2017-07-01] MEDS: SODIUM CHLOR 0.9% 1000 ML INJ 1,000 ML IV SCH ×2 (03:18→15:36)
[2017-07-01] MEDS: CISATRACURIUM INJ 100 MG in SODIUM CHLOR 0.9% 250 ML INJ 250 ML IV PRN ×2 (03:28→09:39)
[2017-07-01] MEDS: CHLORHEXIDINE GLUCONATE 2 % 1 PACK (2 CLOTHS) TOP SCH (03:44)
[2017-07-01] MEDS: RESP: ACETYLCYSTEINE 10% 30 ML NEB NEB SCH (04:00)
[2017-07-01 04:35] LABS: AUTOMATED NEUTROPHIL # 5.3 TH/MM3 (1.8-7.7); BASOPHIL % 0.4 % (0.0-2.0); EOSINOPHIL # 0.1 TH/MM3 (0-0.4); HEMATOCRIT 29.8 % (39.0-51.0); HEMOGLOBIN 9.7 GM/DL (13.0-17.0); LYMPHOCYTE # 0.9 TH/MM3 (1.0-4.8); MEAN CELL VOLUME 80.6 FL (80.0-100.0); MEAN CORPUSCULAR HEMOGLOBIN 26.3 PG (27.0-34.0); MEAN CORPUSCULAR HGB CONC 32.6 % (32.0-36.0); MEAN PLATELET VOLUME 7.5 FL (7.0-11.0); MONO % 8.8 % (0.0-8.0); MONOCYTE # 0.6 TH/MM3 (0-0.9); NEUT % 75.8 % (16.0-70.0); PLATELET COUNT 186 TH/MM3 (150-450); RED BLOOD COUNT 3.69 MIL/MM3 (4.50-5.90); RED CELL DISTRIBUTION WIDTH 16.5 % (11.6-17.2)
[2017-07-01] MEDS: RESP: ALBUTEROL 2.5 MG/IPRATROPIUM 0.5 MG NEB (SCH) INH ×5 (04:35→21:37)
[2017-07-01 04:56] LABS: BICARBONATE 23.9 MEQ/L (21.0-32.0); CALCIUM 7.8 MG/DL (8.5-10.1); CREATININE 1.09 MG/DL (0.60-1.30)
[2017-07-01] MEDS ORDERED: BISACODYL 10 MG SUPP RECTAL ONE (08:00)
[2017-07-01] MEDS: LACTULOSE SYRUP 20 GM/30 ML CUP PO SCH (08:34)
[2017-07-01] MEDS: CHLORHEXIDINE 0.12% (ORAL KIT) 15 ML CUP MT SCH ×2 (08:35→21:03)
[2017-07-01] MEDS: FAMOTIDINE 20 MG TAB PO SCH ×2 (08:35→21:02)
[2017-07-01] MEDS: DOCUSATE SODIUM 50 MG/SENNA 8.6 MG TAB PO SCH ×2 (08:35→21:02)
[2017-07-01 10:04] LABS: BILIRUBIN, URINE NEG (NEG); BLOOD, URINE NEG (NEG); GLUCOSE,URINE NEG (NEG); KETONE, URINE 40 mg/dL (NEG); MUCUS URINE FEW /lpf (OCC); NITRITE,URINE NEG (NEG); PH, URINE 6.5 (5.0-8.5); URINE COLOR YELLOW (YELLW/STRAW); URINE LEUKOCYTE ESTERASE NEG (NEG)
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
[2017-07-01] MEDS ORDERED: MAGNESIUM OXIDE 400 MG TAB PO PRN (11:15)
[2017-07-01] MEDS ORDERED: POTASSIUM PHOSPHATE INJ 30 MMOL in SODIUM CHLOR 0.9% 250 ML INJ 250 ML IV PRN (11:15)
[2017-07-01] MEDS ORDERED: MAGNESIUM SULFATE INJ 4 GM in SODIUM CHLORIDE 0.9% INJ 92 ML IV PRN (11:15)
[2017-07-01] MEDS ORDERED: Vancomycin Consult Pharmacy 1 EA OTHER SCH (11:15)
[2017-07-01] MEDS ORDERED: POTASSIUM PHOSPHATE MONOBASIC 500 MG TAB PO/TUBE PRN (11:15)
[2017-07-01] MEDS ORDERED: SODIUM PHOSPHATE INJ 30 MMOL in SODIUM CHLOR 0.9% 250 ML INJ 240 ML IV PRN (11:15)
[2017-07-01] MEDS ORDERED: POTASSIUM CHLOR 20 MEQ PREMIX 100 ML IV PRN ×2 (11:15)
[2017-07-01] MEDS ORDERED: POTASSIUM CHLOR 40 MEQ PREMIX 100 ML IV PRN ×2 (11:15)
[2017-07-01] MEDS ORDERED: POTASSIUM CHLORIDE 20 MEQ PWD PACKET PO PRN (11:15)
[2017-07-01] MEDS ORDERED: POTASSIUM PHOSPHATE MONOBASIC 500 MG TAB PO PRN (11:15)
[2017-07-01] MEDS ORDERED: MAGNESIUM SULFATE INJ 2 GM in SODIUM CHLORIDE 0.9% INJ 96 ML IV PRN (11:15)
[2017-07-01] MEDS: MIDAZOLAM 100 MG/100 ML INJ 100 ML IV PRN ×2 (11:29→21:22)
[2017-07-01] MEDS ORDERED: PROPOFOL 200 MG/20 ML AMP IV ONE (12:00)
[2017-07-01] MEDS ORDERED: MIDAZOLAM HCL 2 MG/2 ML VIAL IV ONE (12:00)
[2017-07-01] MEDS ORDERED: LIDOCAINE 1%/EPINEPHrine 1:100,000 SOLN 20 ML VIAL ONE (12:03)
[2017-07-01] MEDS: LEVOFLOXACIN 500 MG PREMIX INJ 100 ML IV SCH (12:16)
[2017-07-01 12:23] LABS: MAGNESIUM 2.3 MG/DL (1.5-2.5); PHOSPHORUS 1.9 MG/DL (2.5-4.9)
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
[2017-07-01] MEDS: VANCOMYCIN INJ 2,500 MG in SODIUM CHLORID 0.9% 500 ML INJ 500 ML IV SCH (15:36)
[2017-07-01] MEDS: ENOXAPARIN SODIUM 40 MG/0.4 ML SYRINGE SQ SCH (16:52)
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
[2017-07-02] VITALS (19 sets, daily range): BP systolic 131–162; BP diastolic 64–99; PULSE 78–104; RESP 15–17; TEMP 99.7–101.9; O2SAT 93–97
[2017-07-02] MEDS: fentaNYL DRIP 250 ML IV PRN ×2 (00:26→11:58)
[2017-07-02] MEDS: VANCOMYCIN INJ 2,500 MG in SODIUM CHLORID 0.9% 500 ML INJ 500 ML IV SCH ×2 (00:26→13:38)
[2017-07-02] MEDS: RESP: ALBUTEROL 2.5 MG/IPRATROPIUM 0.5 MG NEB (SCH) INH ×7 (00:44→23:45)
[2017-07-02] MEDS: CHLORHEXIDINE GLUCONATE 2 % 1 PACK (2 CLOTHS) TOP SCH (04:00)
[2017-07-02 04:57] LABS: AUTOMATED NEUTROPHIL # 5.8 TH/MM3 (1.8-7.7); BASOPHIL % 0.6 % (0.0-2.0); EOSINOPHIL # 0.2 TH/MM3 (0-0.4); EOSINOPHIL % 2.6 % (0.0-4.0); HEMATOCRIT 29.9 % (39.0-51.0); HEMOGLOBIN 9.7 GM/DL (13.0-17.0); LYMPH % 10.8 % (9.0-44.0); LYMPHOCYTE # 0.8 TH/MM3 (1.0-4.8); MEAN CELL VOLUME 82.4 FL (80.0-100.0); MEAN CORPUSCULAR HEMOGLOBIN 26.8 PG (27.0-34.0); MEAN CORPUSCULAR HGB CONC 32.5 % (32.0-36.0); MEAN PLATELET VOLUME 7.6 FL (7.0-11.0); MONO % 9.6 % (0.0-8.0); MONOCYTE # 0.7 TH/MM3 (0-0.9); NEUT % 76.4 % (16.0-70.0); PLATELET COUNT 197 TH/MM3 (150-450); RED BLOOD COUNT 3.63 MIL/MM3 (4.50-5.90); RED CELL DISTRIBUTION WIDTH 16.5 % (11.6-17.2); WHITE BLOOD COUNT 7.7 TH/MM3 (4.0-11.0)
[2017-07-02] MEDS: SODIUM CHLOR 0.9% 1000 ML INJ 1,000 ML IV SCH (05:02)
[2017-07-02 05:17] LABS: BICARBONATE 25.1 MEQ/L (21.0-32.0); CALCIUM 8.1 MG/DL (8.5-10.1); CREATININE 0.99 MG/DL (0.60-1.30)
[2017-07-02 05:45] LABS: BANDS 2 % (0-6); LYMPHOCYTES 10 % (9-44); METAMYELOCYTES 1 % (0-1); MONOCYTES 12 % (0-8); POLYS (SEG NEUTROPHILS) 75 % (16-70)
[2017-07-02 05:47] LABS: SPHEROCYTES OCC (NORMAL)
[2017-07-02 05:48] LABS: TOXIC VACUOLATION PRESENT (NONE SEEN)
[2017-07-02] MEDS: CHLORHEXIDINE 0.12% (ORAL KIT) 15 ML CUP MT SCH ×2 (08:00→21:06)
[2017-07-02] MEDS: ENOXAPARIN SODIUM 40 MG/0.4 ML SYRINGE SQ SCH ×2 (10:10→21:06)
[2017-07-02] MEDS: LACTULOSE SYRUP 20 GM/30 ML CUP PO SCH (10:10)
[2017-07-02] MEDS: BISACODYL 10 MG SUPP RECTAL SCH ×2 (10:10→20:59)
[2017-07-02] MEDS: DOCUSATE SODIUM 50 MG/SENNA 8.6 MG TAB PO SCH ×2 (10:10→20:59)
[2017-07-02] MEDS: FAMOTIDINE 20 MG TAB PO SCH ×2 (10:10→21:06)
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
[2017-07-02] MEDS: ACETAMINOPHEN 650 MG/20.3 ML UDC PO PRN (10:40)
--- NOTE | 2017-07-02 10:46 | RADRPT ---
EXAM DATE/TIME: 07/02/2017 09:56 [facility] COMPARISON: CHEST SINGLE AP, June 30, 2017, 11:09. INDICATIONS : Evaluate for infiltrate. MEDICAL HISTORY : Spinal stenosis. SURGICAL HISTORY : None. ENCOUNTER: Subsequent ACUITY: 1 week PAIN SCORE: Non-responsive. LOCATION: chest FINDINGS: Tracheostomy tube is noted in good position approximately 5 cm above the anne. A nasogastric tube h as its tip below the diaphragm. A left internal jugular central line is stable in position with its t ip in the superior vena cava. The heart remains enlarged. Moderate pulmonary vascular congestion is n oted bilaterally. CONCLUSION: 1. Moderate pulmonary vascular congestion. 2. Cardiomegaly. 3. Tubes and lines are in good positions. Dawson Sutton MD on July 02, 2017 at 10:43 Board Certified Radiologist. This report was verified electronically.
[2017-07-02 10:57] LABS: BACTERIA, URINE OCC /hpf; BILIRUBIN, URINE NEG (NEG); BLOOD, URINE TRACE (NEG); GLUCOSE,URINE NEG (NEG); HYALINE CAST, URINE 1 /lpf (RARE); KETONE, URINE TRACE mg/dL (NEG); MUCUS URINE MANY /lpf (OCC); NITRITE,URINE NEG (NEG); PH, URINE 5.5 (5.0-8.5); SQUAMOUS EPITHELIAL CELL URINE <1 /hpf (0-5); URINE COLOR YELLOW (YELLW/STRAW); URINE LEUKOCYTE ESTERASE SMALL (NEG)
[2017-07-02] MEDS: LEVOFLOXACIN 500 MG PREMIX INJ 100 ML IV SCH (11:57)
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
--- NOTE | 2017-07-02 23:33 | RADRPT ---
EXAM DATE/TIME: 07/02/2017 22:57 [facility] COMPARISON: CHEST SINGLE AP, July 02, 2017, 9:56. INDICATIONS : Central line placement. MEDICAL HISTORY : None. SURGICAL HISTORY : None. ENCOUNTER: Subsequent ACUITY: 4 - 6 days PAIN SCORE: Non-responsive. LOCATION: Bilateral chest FINDINGS: Mild hazy parenchymal opacities are slightly improved in the interim. No large effusion demonstrated. No pneumothorax. A left internal jugular central venous catheter is again noted, tip in the superior vena cava. Nasoga stric tube courses into the stomach. Tracheostomy tube again noted. CONCLUSION: I don't see a new line. Mild hazy air space opacities are slightly improved. No pneumothorax. . Sam Antony MD on July 02, 2017 at 23:30 Board Certified Radiologist. This report was verified electronically.
[2017-07-03] VITALS (17 sets, daily range): BP systolic 110–154; BP diastolic 53–72; PULSE 73–105; RESP 15–16; TEMP 100.8–102; O2SAT 94–98
[2017-07-03] MEDS: ACETAMINOPHEN 650 MG/20.3 ML UDC PO PRN ×3 (01:01→12:04)
[2017-07-03] MEDS: VANCOMYCIN INJ 2,500 MG in SODIUM CHLORID 0.9% 500 ML INJ 500 ML IV SCH ×2 (01:41→14:39)
[2017-07-03] MEDS ORDERED: PHARMACY ORDERED LAB ONE (01:45)
[2017-07-03 02:32] LABS: PHOSPHORUS 2.9 MG/DL (2.5-4.9); VANCOMYCIN TROUGH 15.9 MCG/ML (5.0-10.0)
[2017-07-03] MEDS: RESP: ALBUTEROL 2.5 MG/IPRATROPIUM 0.5 MG NEB (SCH) INH ×5 (03:08→21:47)
[2017-07-03] MEDS: CHLORHEXIDINE GLUCONATE 2 % 1 PACK (2 CLOTHS) TOP SCH (03:46)
[2017-07-03 06:23] LABS: AUTOMATED NEUTROPHIL # 8.6 TH/MM3 (1.8-7.7); BASOPHIL % 0.4 % (0.0-2.0); EOSINOPHIL # 0.1 TH/MM3 (0-0.4); EOSINOPHIL % 1.1 % (0.0-4.0); HEMATOCRIT 30.4 % (39.0-51.0); HEMOGLOBIN 9.9 GM/DL (13.0-17.0); LYMPH % 9.7 % (9.0-44.0); MEAN CELL VOLUME 84.6 FL (80.0-100.0); MEAN CORPUSCULAR HEMOGLOBIN 27.6 PG (27.0-34.0); MEAN CORPUSCULAR HGB CONC 32.6 % (32.0-36.0); MEAN PLATELET VOLUME 8.5 FL (7.0-11.0); MONO % 8.9 % (0.0-8.0); NEUT % 79.9 % (16.0-70.0); PLATELET COUNT 187 TH/MM3 (150-450); RED BLOOD COUNT 3.59 MIL/MM3 (4.50-5.90); RED CELL DISTRIBUTION WIDTH 16.3 % (11.6-17.2); WHITE BLOOD COUNT 10.8 TH/MM3 (4.0-11.0)
[2017-07-03 06:31] LABS: BICARBONATE 19.5 MEQ/L (21.0-32.0); CALCIUM 8.1 MG/DL (8.5-10.1); CREATININE 0.98 MG/DL (0.60-1.30)
[2017-07-03] MEDS: HYDROmorphone HCL PF 2 MG/ML VIAL IV PRN (07:25)
[2017-07-03] MEDS: DEXMEDETOMIDINE INJ 200 MCG in SODIUM CHLORIDE 0.9% INJ 50 ML IV PRN (07:26)
[2017-07-03] MEDS: CHLORHEXIDINE 0.12% (ORAL KIT) 15 ML CUP MT SCH ×2 (08:00→22:04)
[2017-07-03] MEDS: MIDAZOLAM 100 MG/100 ML INJ 100 ML IV PRN ×2 (08:42→18:16)
[2017-07-03] MEDS ORDERED: FUROSEMIDE 40 MG/4 ML VIAL IV PUSH ONE (08:45)
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
[2017-07-03] MEDS: LACTULOSE SYRUP 20 GM/30 ML CUP PO SCH (09:20)
[2017-07-03] MEDS: BISACODYL 10 MG SUPP RECTAL SCH ×2 (09:20→21:00)
[2017-07-03] MEDS: FAMOTIDINE 20 MG TAB PO SCH ×2 (09:21→22:04)
[2017-07-03] MEDS: LORazepam 2 MG TAB PO SCH ×2 (09:21→17:00)
[2017-07-03] MEDS: ENOXAPARIN SODIUM 40 MG/0.4 ML SYRINGE SQ SCH ×2 (09:21→22:04)
[2017-07-03] MEDS: DOCUSATE SODIUM 50 MG/SENNA 8.6 MG TAB PO SCH ×2 (09:21→22:09)
--- NOTE | 2017-07-03 10:07 | RADRPT ---
EXAM DATE/TIME: 07/03/2017 09:31 [facility] COMPARISON: CHEST SINGLE AP, July 02, 2017, 22:57. INDICATIONS : Respiratory Disease. MEDICAL HISTORY : None. SURGICAL HISTORY : None. ENCOUNTER: Subsequent ACUITY: 1 week PAIN SCORE: Non-responsive. LOCATION: Bilateral chest FINDINGS: A single view of the chest demonstrates hypoinflation with some interstitial prominence elsewhere rep resenting some degree of vascular congestion or volume overload. Mild atelectatic changes in the base s, particularly above the left hemidiaphragm. Accounting for the low lung findings, the heart size is still borderline. Tracheostomy tube is stable in position with the tip at the clavicular heads. Naso gastric tube traverses the GE junction, enters the stomach and extends off the inferior aspect of s[place] ge. Left IJ central venous catheter again projects over the central portion of the left brachiocephal ic vein. Osseous structures are intact. CONCLUSION: 1. Hypoinflation with accentuation of the interstitial markings. Cannot exclude some degree of vascul ar congestion or volume overload. Heart size remains borderline. 2. Bibasilar atelectasis, left greater than right. 3. Stable position of life support tubes as detailed above. Umesh Carbone MD on July 03, 2017 at 10:02 Board Certified Radiologist. This report was verified electronically.
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
[2017-07-03] MEDS: LEVOFLOXACIN 500 MG PREMIX INJ 100 ML IV SCH (12:01)
[2017-07-03] MEDS: SODIUM CHLOR 0.9% 1000 ML INJ 1,000 ML IV SCH ×2 (12:04→22:06)
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
[2017-07-03] MEDS: PIPERACIL-TAZO 3.375 GM PREMIX 50 ML IV SCH ×2 (13:59→22:44)
[2017-07-03] MEDS: QUEtiapine FUMARATE 100 MG TAB PO SCH ×2 (14:00→22:00)
[2017-07-03] MEDS: fentaNYL DRIP 250 ML IV PRN (14:45)
[2017-07-04] VITALS (17 sets, daily range): BP systolic 107–141; BP diastolic 55–76; PULSE 68–106; RESP 15–17; TEMP 100.1–100.4; O2SAT 96–99
[2017-07-04] MEDS: fentaNYL DRIP 250 ML IV PRN ×2 (00:26→17:23)
[2017-07-04] MEDS: LORazepam 2 MG TAB PO SCH ×3 (01:00→17:23)
[2017-07-04] MEDS: VANCOMYCIN INJ 2,500 MG in SODIUM CHLORID 0.9% 500 ML INJ 500 ML IV SCH ×2 (02:06→13:23)
[2017-07-04] MEDS: PIPERACIL-TAZO 3.375 GM PREMIX 50 ML IV SCH ×4 (02:17→21:02)
[2017-07-04] MEDS: ACETAMINOPHEN 650 MG/20.3 ML UDC PO PRN ×2 (03:21→23:18)
[2017-07-04] MEDS: CHLORHEXIDINE GLUCONATE 2 % 1 PACK (2 CLOTHS) TOP SCH (04:00)
[2017-07-04] MEDS: RESP: ALBUTEROL 2.5 MG/IPRATROPIUM 0.5 MG NEB (SCH) INH ×4 (04:12→11:08)
[2017-07-04] MEDS: QUEtiapine FUMARATE 100 MG TAB PO SCH ×3 (06:00→21:02)
[2017-07-04] MEDS: MIDAZOLAM 100 MG/100 ML INJ 100 ML IV PRN (06:39)
[2017-07-04] MEDS: FAMOTIDINE 20 MG TAB PO SCH ×2 (09:12→21:02)
[2017-07-04] MEDS: BISACODYL 10 MG SUPP RECTAL SCH ×2 (09:12→21:00)
[2017-07-04] MEDS: DOCUSATE SODIUM 50 MG/SENNA 8.6 MG TAB PO SCH ×2 (09:12→21:00)
[2017-07-04] MEDS: LACTULOSE SYRUP 20 GM/30 ML CUP PO SCH (09:12)
[2017-07-04] MEDS: ENOXAPARIN SODIUM 40 MG/0.4 ML SYRINGE SQ SCH ×2 (09:12→21:02)
[2017-07-04] MEDS: CHLORHEXIDINE 0.12% (ORAL KIT) 15 ML CUP MT SCH ×2 (09:26→21:03)
[2017-07-04] MEDS: SODIUM CHLOR 0.9% 1000 ML INJ 1,000 ML IV SCH ×3 (10:16→23:24)
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
[2017-07-04] MEDS: LEVOFLOXACIN 500 MG PREMIX INJ 100 ML IV SCH (13:20)
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
--- NOTE | 2017-07-04 17:51 | ECHRPT ---
Indication: SOB CONCLUSIONS The left ventricular systolic function is normal with an estimated ejection fraction in the range of 55-60%. Mild concentric left ventricular hypertrophy. No pericardial effusion BP: / HR: Rhythm: MEASUREMENTS (Male / Female) Normal Values Technical Quality:Technically difficult study 2D ECHO LV Diastolic Diameter PLAX 5.8 cm 4.2 - 5.9 / 3.9 - 5.3 cm LV Systolic Diameter PLAX 4.4 cm IVS Diastolic Thickness 1.7 cm 0.6 - 1.0 / 0.6 - 0.9 cm LVPW Diastolic Thickness 1.4 cm 0.6 - 1.0 / 0.6 - 0.9 cm LV Relative Wall Thickness 0.5 M-MODE LV Diastolic Diameter MM 5.9 cm 4.2 - 5.9 / 3.9 - 5.3 cm IVS Diastolic Thickness MM 1.7 cm 0.6 - 1.0 / 0.6 - 0.9 cm LVPW Diastolic Thickness MM 1.5 cm 0.6 - 1.0 / 0.6 - 0.9 cm LV Relative Wall Thickness MM 0.5 0.24 - 0.42 / 0.22 - 0.42 LV Mass Index MM 154.5 g/m 49 - 115 / 43 - 95 g/m Aortic Root Diameter MM 3.6 cm LA Systolic Diameter MM 3.9 cm LA Ao Ratio MM 1.1 DOPPLER Mitral E Point Velocity 118.0 cm/s Mitral A Point Velocity 93.7 cm/s Mitral E to A Ratio 1.3 LV E' Lateral Velocity 14.9 cm/s Mitral E to LV E' Lateral Ratio 7.9 FINDINGS LEFT VENTRICLE The left ventricular systolic function is normal with an estimated ejection fraction in the range of 55-60%. Mild concentric left ventricular hypertrophy. RIGHT VENTRICLE Normal right ventricular size and systolic function. LEFT ATRIUM The left atrial size is normal. RIGHT ATRIUM The right atrial size is normal. ATRIAL SEPTUM The interatrial septum not well visualized. AORTA The aortic root and proximal ascending aorta are not well visualized. MITRAL VALVE The mitral valve is not well visualized. No mitral valve regurgitation. AORTIC VALVE The aortic valve is not well visualized. No aortic valve regurgitation. TRICUSPID VALVE The tricuspid valve is not well visualized. No tricuspid regurgitation. The tricuspid valve is not well visualized. PULMONARY VALVE The pulmonary valve is not well visualized. No pulmonary valve regurgitation. VESSELS The inferior vena cava was not well visualized. PERICARDIUM No pericardial effusion. Otakar Quadrat MD, FACC (Electronically Signed) Final Date:04 July 2017 17:49
[2017-07-05] VITALS (20 sets, daily range): BP systolic 124–156; BP diastolic 61–80; PULSE 68–90; RESP 15–22; TEMP 100–101.5; O2SAT 91–97
[2017-07-05] MEDS: PIPERACIL-TAZO 3.375 GM PREMIX 50 ML IV SCH ×4 (01:22→20:30)
[2017-07-05] MEDS: LORazepam 2 MG TAB PO SCH ×4 (01:22→23:45)
[2017-07-05] MEDS ORDERED: PHARMACY ORDERED LAB ONE (01:45)
[2017-07-05 03:23] LABS: BICARBONATE 25.8 MEQ/L (21.0-32.0); CREATININE 1.02 MG/DL (0.60-1.30); VANCOMYCIN TROUGH 17.4 MCG/ML (5.0-10.0)
[2017-07-05] MEDS: VANCOMYCIN INJ 2,500 MG in SODIUM CHLORID 0.9% 500 ML INJ 500 ML IV SCH ×2 (03:25→14:37)
[2017-07-05] MEDS: CHLORHEXIDINE GLUCONATE 2 % 1 PACK (2 CLOTHS) TOP SCH (03:28)
[2017-07-05] MEDS: HALOPERIDOL LACTATE 5 MG/ML AMP IV PRN ×2 (04:05→14:59)
[2017-07-05 04:06] LABS: AUTOMATED NEUTROPHIL # 3.9 TH/MM3 (1.8-7.7); BASOPHIL % 0.6 % (0.0-2.0); EOSINOPHIL # 0.2 TH/MM3 (0-0.4); HEMATOCRIT 26.7 % (39.0-51.0); HEMOGLOBIN 8.6 GM/DL (13.0-17.0); LYMPHOCYTE # 0.9 TH/MM3 (1.0-4.8); MEAN CELL VOLUME 82.2 FL (80.0-100.0); MEAN CORPUSCULAR HEMOGLOBIN 26.6 PG (27.0-34.0); MEAN CORPUSCULAR HGB CONC 32.4 % (32.0-36.0); MEAN PLATELET VOLUME 8.3 FL (7.0-11.0); MONO % 8.6 % (0.0-8.0); MONOCYTE # 0.5 TH/MM3 (0-0.9); NEUT % 69.8 % (16.0-70.0); PLATELET COUNT 214 TH/MM3 (150-450); RED BLOOD COUNT 3.25 MIL/MM3 (4.50-5.90); RED CELL DISTRIBUTION WIDTH 16.1 % (11.6-17.2); WHITE BLOOD COUNT 5.5 TH/MM3 (4.0-11.0)
[2017-07-05] MEDS: QUEtiapine FUMARATE 100 MG TAB PO SCH ×3 (05:34→20:30)
[2017-07-05] MEDS: HYDROmorphone HCL PF 2 MG/ML VIAL IV PRN ×2 (07:33→16:47)
[2017-07-05] MEDS: CHLORHEXIDINE 0.12% (ORAL KIT) 15 ML CUP MT SCH ×2 (08:00→20:31)
[2017-07-05] MEDS: FAMOTIDINE 20 MG TAB PO SCH ×2 (08:17→20:30)
[2017-07-05] MEDS: DOCUSATE SODIUM 50 MG/SENNA 8.6 MG TAB PO SCH ×2 (08:17→20:30)
[2017-07-05] MEDS: ENOXAPARIN SODIUM 40 MG/0.4 ML SYRINGE SQ SCH ×2 (08:18→20:29)
[2017-07-05] MEDS: LACTULOSE SYRUP 20 GM/30 ML CUP PO SCH (08:18)
[2017-07-05] MEDS: BISACODYL 10 MG SUPP RECTAL SCH ×2 (08:18→21:19)
[2017-07-05] MEDS: ACETAMINOPHEN 650 MG/20.3 ML UDC PO PRN (08:20)
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
[2017-07-05] MEDS ORDERED: FUROSEMIDE 20 MG/2 ML VIAL IV PUSH ONE (08:45)
[2017-07-05] MEDS: RESP: BUDESONIDE 0.5 MG/2 ML NEB NEB SCH ×2 (08:59→20:15)
[2017-07-05] MEDS: RESP: ALBUTEROL 2.5 MG/IPRATROPIUM 0.5 MG NEB (SCH) NEB ×3 (08:59→22:09)
[2017-07-05] MEDS: oxyCODONE HCL ORAL CONC 5 MG/0.25 ML SYRINGE PO SCH ×4 (10:06→20:30)
--- NOTE | 2017-07-05 11:13 | RADRPT ---
EXAM DATE/TIME: 07/05/2017 09:16 [place] COMPARISON: CHEST SINGLE AP, July 03, 2017, 9:31. INDICATIONS : Respiratory disease MEDICAL HISTORY : None. SURGICAL HISTORY : None. ENCOUNTER: Subsequent ACUITY: 2 weeks PAIN SCORE: Non-responsive. LOCATION: Chest FINDINGS: 3 portable frontal views the chest show cardiomegaly with pulmonary vascular engorgement. No discrete infiltrate or effusion. Tip of the endotracheal tube is 5 cm from the anne. Nasogastric tube is in the region of the fundus. CONCLUSION: Cardiomegaly with pulmonary vascular engorgement. Clear lungs otherwise. Perfecto Mejia Jr., MD on July 05, 2017 at 11:09 Board Certified Radiologist. This report was verified electronically.
[2017-07-05] MEDS: LEVOFLOXACIN 500 MG PREMIX INJ 100 ML IV SCH (12:26)
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
[2017-07-06] VITALS (18 sets, daily range): BP systolic 116–135; BP diastolic 54–91; PULSE 64–93; RESP 16–28; TEMP 99.5–100.2; O2SAT 92–98
[2017-07-06] MEDS: oxyCODONE HCL ORAL CONC 5 MG/0.25 ML SYRINGE PO SCH ×6 (02:47→21:45)
[2017-07-06] MEDS: VANCOMYCIN INJ 2,500 MG in SODIUM CHLORID 0.9% 500 ML INJ 500 ML IV SCH ×2 (02:59→14:23)
[2017-07-06] MEDS: PIPERACIL-TAZO 3.375 GM PREMIX 50 ML IV SCH ×3 (02:59→13:59)
[2017-07-06] MEDS: CHLORHEXIDINE GLUCONATE 2 % 1 PACK (2 CLOTHS) TOP SCH ×2 (04:00→23:16)
[2017-07-06] MEDS: RESP: ALBUTEROL 2.5 MG/IPRATROPIUM 0.5 MG NEB (SCH) NEB ×4 (04:20→19:43)
[2017-07-06 06:08] LABS: BICARBONATE 25.7 MEQ/L (21.0-32.0); CALCIUM 8.2 MG/DL (8.5-10.1); CREATININE 1.02 MG/DL (0.60-1.30)
[2017-07-06 06:11] LABS: AUTOMATED NEUTROPHIL # 3.5 TH/MM3 (1.8-7.7); BASOPHIL % 0.6 % (0.0-2.0); EOSINOPHIL # 0.3 TH/MM3 (0-0.4); HEMATOCRIT 24.9 % (39.0-51.0); HEMOGLOBIN 8.3 GM/DL (13.0-17.0); LYMPH % 15.8 % (9.0-44.0); LYMPHOCYTE # 0.8 TH/MM3 (1.0-4.8); MEAN CELL VOLUME 81.8 FL (80.0-100.0); MEAN CORPUSCULAR HEMOGLOBIN 27.2 PG (27.0-34.0); MEAN CORPUSCULAR HGB CONC 33.2 % (32.0-36.0); MEAN PLATELET VOLUME 9.1 FL (7.0-11.0); MONO % 9.1 % (0.0-8.0); MONOCYTE # 0.5 TH/MM3 (0-0.9); NEUT % 69.5 % (16.0-70.0); PLATELET COUNT 217 TH/MM3 (150-450); RED BLOOD COUNT 3.04 MIL/MM3 (4.50-5.90); RED CELL DISTRIBUTION WIDTH 15.8 % (11.6-17.2); WHITE BLOOD COUNT 5.1 TH/MM3 (4.0-11.0)
[2017-07-06] MEDS: QUEtiapine FUMARATE 100 MG TAB PO SCH (06:35)
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
[2017-07-06] MEDS: LORazepam 1 MG TAB PO SCH ×2 (08:45→16:06)
[2017-07-06] MEDS: ENOXAPARIN SODIUM 40 MG/0.4 ML SYRINGE SQ SCH ×2 (08:45→20:14)
[2017-07-06] MEDS: LACTULOSE SYRUP 20 GM/30 ML CUP PO SCH (08:45)
[2017-07-06] MEDS: BISACODYL 10 MG SUPP RECTAL SCH ×2 (08:45→20:13)
[2017-07-06] MEDS: CHLORHEXIDINE 0.12% (ORAL KIT) 15 ML CUP MT SCH ×2 (08:45→20:00)
[2017-07-06] MEDS: FAMOTIDINE 20 MG TAB PO SCH ×2 (08:45→20:14)
[2017-07-06] MEDS: DOCUSATE SODIUM 50 MG/SENNA 8.6 MG TAB PO SCH ×2 (08:45→20:14)
[2017-07-06] MEDS: RESP: BUDESONIDE 0.5 MG/2 ML NEB NEB SCH ×2 (09:03→19:42)
[2017-07-06] MEDS ORDERED: PILL SPLITTER OTHER PRN (12:15)
[2017-07-06] MEDS: HALOPERIDOL LACTATE 5 MG/ML AMP IV PRN ×2 (12:21→16:36)
[2017-07-06] MEDS: LEVOFLOXACIN 500 MG PREMIX INJ 100 ML IV SCH (12:51)
[2017-07-06] MEDS: QUEtiapine FUMARATE 300 MG TAB PO SCH ×2 (14:23→21:45)
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
[2017-07-07] VITALS (19 sets, daily range): BP systolic 123–169; BP diastolic 58–92; PULSE 72–96; RESP 15–29; TEMP 98.2–99.9; O2SAT 95–99
[2017-07-07] MEDS: LORazepam 1 MG TAB PO SCH ×3 (00:08→16:48)
[2017-07-07] MEDS: oxyCODONE HCL ORAL CONC 5 MG/0.25 ML SYRINGE PO SCH ×6 (02:00→20:50)
[2017-07-07] MEDS: RESP: ALBUTEROL 2.5 MG/IPRATROPIUM 0.5 MG NEB (SCH) NEB ×4 (03:01→19:48)
[2017-07-07 06:09] LABS: AUTOMATED NEUTROPHIL # 3.8 TH/MM3 (1.8-7.7); BASOPHIL % 0.6 % (0.0-2.0); EOSINOPHIL # 0.2 TH/MM3 (0-0.4); EOSINOPHIL % 4.1 % (0.0-4.0); HEMATOCRIT 26.7 % (39.0-51.0); HEMOGLOBIN 8.5 GM/DL (13.0-17.0); LYMPH % 15.2 % (9.0-44.0); LYMPHOCYTE # 0.8 TH/MM3 (1.0-4.8); MEAN CELL VOLUME 80.9 FL (80.0-100.0); MEAN CORPUSCULAR HEMOGLOBIN 25.8 PG (27.0-34.0); MEAN CORPUSCULAR HGB CONC 31.9 % (32.0-36.0); MEAN PLATELET VOLUME 8.8 FL (7.0-11.0); MONOCYTE # 0.5 TH/MM3 (0-0.9); NEUT % 71.1 % (16.0-70.0); PLATELET COUNT 218 TH/MM3 (150-450); RED CELL DISTRIBUTION WIDTH 15.7 % (11.6-17.2); WHITE BLOOD COUNT 5.3 TH/MM3 (4.0-11.0)
[2017-07-07] MEDS: QUEtiapine FUMARATE 300 MG TAB PO SCH ×3 (06:18→20:49)
[2017-07-07 06:32] LABS: BICARBONATE 26.8 MEQ/L (21.0-32.0); CALCIUM 8.3 MG/DL (8.5-10.1); CREATININE 0.95 MG/DL (0.60-1.30)
[2017-07-07] MEDS: RESP: BUDESONIDE 0.5 MG/2 ML NEB NEB SCH ×2 (07:39→19:48)
[2017-07-07] MEDS: DOCUSATE SODIUM 50 MG/SENNA 8.6 MG TAB PO SCH ×2 (08:23→20:50)
[2017-07-07] MEDS: LACTULOSE SYRUP 20 GM/30 ML CUP PO SCH (08:23)
[2017-07-07] MEDS: ENOXAPARIN SODIUM 40 MG/0.4 ML SYRINGE SQ SCH ×2 (08:23→20:49)
[2017-07-07] MEDS: CHLORHEXIDINE 0.12% (ORAL KIT) 15 ML CUP MT SCH ×2 (08:23→20:00)
[2017-07-07] MEDS: FAMOTIDINE 20 MG TAB PO SCH ×2 (08:23→20:50)
[2017-07-07] MEDS: BISACODYL 10 MG SUPP RECTAL SCH ×2 (08:23→20:50)
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
[2017-07-07] MEDS: RESP: ALBUTEROL 2.5 MG/IPRATROPIUM 0.5 MG NEB (PRN) NEB (16:56)
[2017-07-07] MEDS: HALOPERIDOL LACTATE 5 MG/ML AMP IV PRN (19:01)
[2017-07-07] MEDS: CHLORHEXIDINE GLUCONATE 2 % 1 PACK (2 CLOTHS) TOP SCH (19:22)
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
[2017-07-08] VITALS (15 sets, daily range): BP systolic 116–145; BP diastolic 70–83; PULSE 74–92; RESP 18–22; TEMP 98.2–99.6; O2SAT 87–100
--- NOTE | 2017-07-08 02:05 | RADRPT ---
EXAM DATE/TIME: 07/08/2017 01:04 [facility] COMPARISON: CHEST SINGLE AP, July 05, 2017, 9:16. INDICATIONS : Respiratory disease. MEDICAL HISTORY : None. SURGICAL HISTORY : None. ENCOUNTER: Subsequent ACUITY: 1 week PAIN SCORE: Non-responsive. LOCATION: Bilateral chest FINDINGS: Tracheostomy is stable in good position. Nasogastric tube descends into the stomach. There is hazy bi lateral perihilar and basilar parenchymal opacity which appears slightly increased from previous. Car diac contours are grossly unchanged. CONCLUSION: Slight interval worsening in aeration Sam Morris MD on July 08, 2017 at 2:02 Board Certified Radiologist. This report was verified electronically.
--- NOTE | 2017-07-08 02:21 | RADRPT ---
EXAM DATE/TIME: 07/08/2017 00:56 [facility] COMPARISON: No previous studies available for comparison. INDICATIONS : NG tube placement. MEDICAL HISTORY : None. SURGICAL HISTORY : None. ENCOUNTER: Initial ACUITY: 1 day PAIN SCORE: Non-responsive. LOCATION: abdomen FINDINGS: Nasogastric tube overlies the stomach. There is mild gaseous distention of bowel loops seen elsewhere in the upper abdomen. CONCLUSION: NG tube in the stomach Sam Morris MD on July 08, 2017 at 2:18 Board Certified Radiologist. This report was verified electronically.
[2017-07-08] MEDS: LORazepam 1 MG TAB PO SCH ×3 (03:12→17:00)
[2017-07-08] MEDS: oxyCODONE HCL ORAL CONC 5 MG/0.25 ML SYRINGE PO SCH ×6 (03:13→22:00)
[2017-07-08] MEDS: RESP: ALBUTEROL 2.5 MG/IPRATROPIUM 0.5 MG NEB (SCH) NEB ×4 (04:32→20:42)
[2017-07-08] MEDS: QUEtiapine FUMARATE 300 MG TAB PO SCH ×3 (05:31→21:14)
[2017-07-08 05:43] LABS: AUTOMATED NEUTROPHIL # 4.9 TH/MM3 (1.8-7.7); BASOPHIL % 0.5 % (0.0-2.0); EOSINOPHIL # 0.2 TH/MM3 (0-0.4); EOSINOPHIL % 3.1 % (0.0-4.0); HEMATOCRIT 29.1 % (39.0-51.0); HEMOGLOBIN 9.4 GM/DL (13.0-17.0); LYMPH % 12.7 % (9.0-44.0); LYMPHOCYTE # 0.8 TH/MM3 (1.0-4.8); MEAN CELL VOLUME 80.8 FL (80.0-100.0); MEAN CORPUSCULAR HGB CONC 32.2 % (32.0-36.0); MEAN PLATELET VOLUME 8.8 FL (7.0-11.0); MONO % 8.4 % (0.0-8.0); MONOCYTE # 0.5 TH/MM3 (0-0.9); NEUT % 75.3 % (16.0-70.0); PLATELET COUNT 287 TH/MM3 (150-450); RED CELL DISTRIBUTION WIDTH 15.6 % (11.6-17.2); WHITE BLOOD COUNT 6.5 TH/MM3 (4.0-11.0)
[2017-07-08 06:08] LABS: ALBUMIN 2.2 GM/DL (3.4-5.0); AST (GOT) 42 U/L (15-37); BICARBONATE 27.8 MEQ/L (21.0-32.0); BLOOD UREA NITROGEN 21 MG/DL (7-18); CALCIUM 8.4 MG/DL (8.5-10.1); CHLORIDE 105 MEQ/L (98-107); CREATININE 0.89 MG/DL (0.60-1.30); GLOMERULAR FILTRATION RATE 93 ML/MIN (>89); GLUCOSE,RANDOM 102 MG/DL (74-106); SODIUM (NA) 139 MEQ/L (136-145)
[2017-07-08 06:10] LABS: ALT (GPT) 50 U/L (12-78)
[2017-07-08 06:12] LABS: ALKALINE PHOSPHATASE 131 U/L (45-117); TOTAL BILIRUBIN ADULT 0.7 MG/DL (0.2-1.0); TOTAL PROTEIN 6.3 GM/DL (6.4-8.2)
[2017-07-08] MEDS: FAMOTIDINE 20 MG TAB PO SCH ×2 (07:50→21:14)
[2017-07-08] MEDS: DOCUSATE SODIUM 50 MG/SENNA 8.6 MG TAB PO SCH ×2 (07:50→21:14)
[2017-07-08] MEDS: ENOXAPARIN SODIUM 40 MG/0.4 ML SYRINGE SQ SCH ×2 (07:51→21:14)
[2017-07-08] MEDS: LACTULOSE SYRUP 20 GM/30 ML CUP PO SCH (07:51)
[2017-07-08] MEDS: CHLORHEXIDINE 0.12% (ORAL KIT) 15 ML CUP MT SCH ×2 (07:51→20:00)
[2017-07-08] MEDS: BISACODYL 10 MG SUPP RECTAL SCH ×2 (07:51→21:00)
[2017-07-08] MEDS: RESP: BUDESONIDE 0.5 MG/2 ML NEB NEB SCH ×2 (09:36→20:42)
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
[2017-07-09] VITALS (11 sets, daily range): BP systolic 118–144; BP diastolic 56–82; PULSE 72–92; RESP 18–25; TEMP 97–98.8; O2SAT 97–100
[2017-07-09] MEDS: RESP: ALBUTEROL 2.5 MG/IPRATROPIUM 0.5 MG NEB (PRN) NEB (00:51)
[2017-07-09] MEDS: LORazepam 1 MG TAB PO SCH ×2 (01:00→08:30)
[2017-07-09] MEDS: oxyCODONE HCL ORAL CONC 5 MG/0.25 ML SYRINGE PO SCH ×2 (01:38→05:56)
[2017-07-09] MEDS: RESP: ALBUTEROL 2.5 MG/IPRATROPIUM 0.5 MG NEB (SCH) NEB ×2 (03:00→09:51)
[2017-07-09] MEDS: CHLORHEXIDINE GLUCONATE 2 % 1 PACK (2 CLOTHS) TOP SCH (03:31)
[2017-07-09 05:54] LABS: AUTOMATED NEUTROPHIL # 4.6 TH/MM3 (1.8-7.7); BASOPHIL % 0.5 % (0.0-2.0); EOSINOPHIL # 0.2 TH/MM3 (0-0.4); EOSINOPHIL % 3.5 % (0.0-4.0); HEMATOCRIT 30.2 % (39.0-51.0); LYMPH % 17.3 % (9.0-44.0); LYMPHOCYTE # 1.1 TH/MM3 (1.0-4.8); MEAN CELL VOLUME 81.7 FL (80.0-100.0); MEAN CORPUSCULAR HGB CONC 33.1 % (32.0-36.0); MEAN PLATELET VOLUME 9.2 FL (7.0-11.0); MONOCYTE # 0.4 TH/MM3 (0-0.9); NEUT % 71.7 % (16.0-70.0); PLATELET COUNT 323 TH/MM3 (150-450); RED CELL DISTRIBUTION WIDTH 15.7 % (11.6-17.2); WHITE BLOOD COUNT 6.4 TH/MM3 (4.0-11.0)
[2017-07-09] MEDS: QUEtiapine FUMARATE 300 MG TAB PO SCH (05:57)
[2017-07-09 06:17] LABS: ALKALINE PHOSPHATASE 140 U/L (45-117); ALT (GPT) 49 U/L (12-78); TOTAL BILIRUBIN ADULT 0.5 MG/DL (0.2-1.0)
[2017-07-09 06:19] LABS: ALBUMIN 2.3 GM/DL (3.4-5.0); AST (GOT) 42 U/L (15-37); BICARBONATE 29.3 MEQ/L (21.0-32.0); BLOOD UREA NITROGEN 18 MG/DL (7-18); CALCIUM 8.2 MG/DL (8.5-10.1); CHLORIDE 105 MEQ/L (98-107); CREATININE 0.86 MG/DL (0.60-1.30); GLOMERULAR FILTRATION RATE 97 ML/MIN (>89); GLUCOSE,RANDOM 116 MG/DL (74-106); SODIUM (NA) 140 MEQ/L (136-145)
[2017-07-09] MEDS: DOCUSATE SODIUM 50 MG/SENNA 8.6 MG TAB PO SCH ×2 (07:44→20:19)
[2017-07-09] MEDS: LACTULOSE SYRUP 20 GM/30 ML CUP PO SCH (07:44)
[2017-07-09] MEDS: BISACODYL 10 MG SUPP RECTAL SCH ×2 (07:45→20:20)
[2017-07-09] MEDS: CHLORHEXIDINE 0.12% (ORAL KIT) 15 ML CUP MT SCH ×2 (07:45→20:00)
[2017-07-09] MEDS: ENOXAPARIN SODIUM 40 MG/0.4 ML SYRINGE SQ SCH ×2 (08:30→20:19)
[2017-07-09] MEDS: FAMOTIDINE 20 MG TAB PO SCH ×2 (08:30→20:19)
[2017-07-09] MEDS: MAGNESIUM HYDROXIDE SUSP 30 ML CUP PO SCH ×2 (09:00→20:19)
[2017-07-09] MEDS ORDERED: BISACODYL 10 MG SUPP RECTAL ONE (09:00)
[2017-07-09] MEDS ORDERED: LACTULOSE SYRUP 20 GM/30 ML CUP PO ONE (09:15)
[2017-07-09] MEDS: RESP: BUDESONIDE 0.5 MG/2 ML NEB NEB SCH ×2 (09:51→20:33)
[2017-07-09] MEDS: QUEtiapine FUMARATE 100 MG TAB PO SCH ×2 (13:06→21:20)
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
[2017-07-09] MEDS: oxyCODONE HCL ORAL CONC 5 MG/0.25 ML SYRINGE PO PRN (22:34)
[2017-07-10] VITALS (11 sets, daily range): BP systolic 104–146; BP diastolic 59–76; PULSE 70–84; RESP 12–26; TEMP 98.1–99; O2SAT 95–100
[2017-07-10] MEDS: CHLORHEXIDINE GLUCONATE 2 % 1 PACK (2 CLOTHS) TOP SCH (03:12)
[2017-07-10] MEDS: QUEtiapine FUMARATE 100 MG TAB PO SCH ×3 (05:00→21:39)
[2017-07-10 05:15] LABS: ALBUMIN 2.4 GM/DL (3.4-5.0); ALT (GPT) 49 U/L (12-78); AST (GOT) 26 U/L (15-37); BLOOD UREA NITROGEN 19 MG/DL (7-18); CALCIUM 8.6 MG/DL (8.5-10.1); CHLORIDE 105 MEQ/L (98-107); CREATININE 0.83 MG/DL (0.60-1.30); GLOMERULAR FILTRATION RATE 101 ML/MIN (>89); GLUCOSE,RANDOM 94 MG/DL (74-106); SODIUM (NA) 139 MEQ/L (136-145)
[2017-07-10 05:16] LABS: AUTOMATED NEUTROPHIL # 5.4 TH/MM3 (1.8-7.7); BASOPHIL # 0.1 TH/MM3 (0-0.2); BASOPHIL % 0.7 % (0.0-2.0); EOSINOPHIL # 0.3 TH/MM3 (0-0.4); EOSINOPHIL % 3.6 % (0.0-4.0); HEMATOCRIT 30.7 % (39.0-51.0); HEMOGLOBIN 10.3 GM/DL (13.0-17.0); LYMPH % 18.8 % (9.0-44.0); LYMPHOCYTE # 1.5 TH/MM3 (1.0-4.8); MEAN CELL VOLUME 80.4 FL (80.0-100.0); MEAN CORPUSCULAR HEMOGLOBIN 27.1 PG (27.0-34.0); MEAN CORPUSCULAR HGB CONC 33.7 % (32.0-36.0); MEAN PLATELET VOLUME 8.7 FL (7.0-11.0); MONO % 9.2 % (0.0-8.0); MONOCYTE # 0.7 TH/MM3 (0-0.9); NEUT % 67.7 % (16.0-70.0); PLATELET COUNT 408 TH/MM3 (150-450); RED BLOOD COUNT 3.81 MIL/MM3 (4.50-5.90); RED CELL DISTRIBUTION WIDTH 15.7 % (11.6-17.2)
[2017-07-10 05:17] LABS: ALKALINE PHOSPHATASE 139 U/L (45-117); TOTAL BILIRUBIN ADULT 0.4 MG/DL (0.2-1.0); TOTAL PROTEIN 6.7 GM/DL (6.4-8.2)
[2017-07-10] MEDS: HYDROmorphone HCL PF 2 MG/ML VIAL IV PRN (07:43)
[2017-07-10] MEDS ORDERED: PERI PO (07:54)
[2017-07-10] MEDS ORDERED: MAGN30S PO (07:54)
[2017-07-10] MEDS ORDERED: QUET1TAB8 PO (07:54)
[2017-07-10] MEDS ORDERED: LORA-474 PO (07:54)
[2017-07-10] MEDS: FAMOTIDINE 20 MG TAB PO SCH ×2 (08:07→20:30)
[2017-07-10] MEDS: LACTULOSE SYRUP 20 GM/30 ML CUP PO SCH (08:07)
[2017-07-10] MEDS: MAGNESIUM HYDROXIDE SUSP 30 ML CUP PO SCH ×2 (08:07→20:30)
[2017-07-10] MEDS: ENOXAPARIN SODIUM 40 MG/0.4 ML SYRINGE SQ SCH ×2 (08:07→21:39)
[2017-07-10] MEDS: DOCUSATE SODIUM 50 MG/SENNA 8.6 MG TAB PO SCH ×2 (08:07→20:30)
[2017-07-10] MEDS: BISACODYL 10 MG SUPP RECTAL SCH ×2 (08:07→20:31)
[2017-07-10] MEDS: CHLORHEXIDINE 0.12% (ORAL KIT) 15 ML CUP MT SCH ×2 (08:08→20:00)
[2017-07-10] MEDS: RESP: ALBUTEROL 2.5 MG/IPRATROPIUM 0.5 MG NEB (PRN) NEB (08:36)
[2017-07-10] MEDS: RESP: BUDESONIDE 0.5 MG/2 ML NEB NEB SCH ×2 (08:36→20:26)
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
[2017-07-10] MEDS: oxyCODONE HCL ORAL CONC 5 MG/0.25 ML SYRINGE PO PRN (17:38)
[2017-07-11] VITALS (14 sets, daily range): BP systolic 120–133; BP diastolic 58–64; PULSE 69–84; RESP 9–25; TEMP 98.4–98.8; O2SAT 94–100
[2017-07-11] MEDS: CHLORHEXIDINE GLUCONATE 2 % 1 PACK (2 CLOTHS) TOP SCH (04:00)
[2017-07-11] MEDS: oxyCODONE HCL ORAL CONC 5 MG/0.25 ML SYRINGE PO PRN ×2 (04:51→21:31)
[2017-07-11 04:58] LABS: AUTOMATED NEUTROPHIL # 5.8 TH/MM3 (1.8-7.7); BASOPHIL # 0.1 TH/MM3 (0-0.2); EOSINOPHIL # 0.3 TH/MM3 (0-0.4); EOSINOPHIL % 3.1 % (0.0-4.0); HEMATOCRIT 33.6 % (39.0-51.0); HEMOGLOBIN 11.2 GM/DL (13.0-17.0); LYMPHOCYTE # 1.4 TH/MM3 (1.0-4.8); MEAN CELL VOLUME 80.3 FL (80.0-100.0); MEAN CORPUSCULAR HEMOGLOBIN 26.8 PG (27.0-34.0); MEAN CORPUSCULAR HGB CONC 33.4 % (32.0-36.0); MEAN PLATELET VOLUME 8.3 FL (7.0-11.0); MONO % 8.6 % (0.0-8.0); MONOCYTE # 0.7 TH/MM3 (0-0.9); NEUT % 70.3 % (16.0-70.0); PLATELET COUNT 490 TH/MM3 (150-450); RED BLOOD COUNT 4.18 MIL/MM3 (4.50-5.90); RED CELL DISTRIBUTION WIDTH 15.5 % (11.6-17.2); WHITE BLOOD COUNT 8.2 TH/MM3 (4.0-11.0)
[2017-07-11] MEDS: QUEtiapine FUMARATE 100 MG TAB PO SCH ×3 (05:01→21:27)
[2017-07-11 05:20] LABS: BICARBONATE 26.7 MEQ/L (21.0-32.0); CALCIUM 8.4 MG/DL (8.5-10.1); CREATININE 0.9 MG/DL (0.60-1.30)
[2017-07-11] MEDS: CHLORHEXIDINE 0.12% (ORAL KIT) 15 ML CUP MT SCH ×2 (08:00→21:28)
[2017-07-11] MEDS: RESP: ALBUTEROL 2.5 MG/IPRATROPIUM 0.5 MG NEB (PRN) NEB (08:01)
[2017-07-11] MEDS: RESP: BUDESONIDE 0.5 MG/2 ML NEB NEB SCH ×2 (08:01→20:33)
[2017-07-11] MEDS: BISACODYL 10 MG SUPP RECTAL SCH ×2 (09:00→21:00)
[2017-07-11] MEDS: LACTULOSE SYRUP 20 GM/30 ML CUP PO SCH (09:00)
[2017-07-11] MEDS: MAGNESIUM HYDROXIDE SUSP 30 ML CUP PO SCH ×2 (09:00→21:00)
[2017-07-11] MEDS: DOCUSATE SODIUM 50 MG/SENNA 8.6 MG TAB PO SCH ×2 (09:00→21:00)
[2017-07-11] MEDS: ENOXAPARIN SODIUM 40 MG/0.4 ML SYRINGE SQ SCH ×2 (09:50→21:27)
[2017-07-11] MEDS: FAMOTIDINE 20 MG TAB PO SCH ×2 (09:51→21:27)
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
[2017-07-12] VITALS (10 sets, daily range): BP systolic 108–145; BP diastolic 55–82; PULSE 69–78; RESP 17–40; TEMP 96.9–98.7; O2SAT 93–98
[2017-07-12] MEDS: oxyCODONE HCL ORAL CONC 5 MG/0.25 ML SYRINGE PO PRN ×2 (01:57→18:02)
[2017-07-12] MEDS: CHLORHEXIDINE GLUCONATE 2 % 1 PACK (2 CLOTHS) TOP SCH (03:00)
[2017-07-12] MEDS: QUEtiapine FUMARATE 100 MG TAB PO SCH ×3 (05:48→21:29)
[2017-07-12] MEDS: CHLORHEXIDINE 0.12% (ORAL KIT) 15 ML CUP MT SCH ×2 (08:00→20:00)
[2017-07-12] MEDS: RESP: BUDESONIDE 0.5 MG/2 ML NEB NEB SCH ×2 (08:25→21:44)
[2017-07-12] MEDS: BISACODYL 10 MG SUPP RECTAL SCH ×2 (09:00→21:00)
[2017-07-12] MEDS: MAGNESIUM HYDROXIDE SUSP 30 ML CUP PO SCH ×2 (09:00→21:00)
[2017-07-12] MEDS: LACTULOSE SYRUP 20 GM/30 ML CUP PO SCH (09:00)
[2017-07-12] MEDS: ENOXAPARIN SODIUM 40 MG/0.4 ML SYRINGE SQ SCH ×2 (10:10→21:30)
[2017-07-12] MEDS: FAMOTIDINE 20 MG TAB PO SCH ×2 (10:10→21:29)
[2017-07-12] MEDS: DOCUSATE SODIUM 50 MG/SENNA 8.6 MG TAB PO SCH ×2 (10:10→21:00)
[2017-07-12] MEDS: HYDROmorphone HCL PF 2 MG/ML VIAL IV PRN ×2 (11:58→17:58)
[2017-07-12] MEDS: LORazepam 1 MG TAB PO PRN (11:58)
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
[2017-07-12] MEDS: HALOPERIDOL LACTATE 5 MG/ML AMP IV PRN (16:21)
[2017-07-12] MEDS: SODIUM CHLORIDE 0.9% FLUSH 10 ML FLUSH IVF PRN (16:24)
[2017-07-13] VITALS (7 sets, daily range): BP systolic 107–144; BP diastolic 69–79; PULSE 73–82; RESP 19–22; TEMP 95.6–98.7; O2SAT 95–100
[2017-07-13] MEDS: oxyCODONE HCL ORAL CONC 5 MG/0.25 ML SYRINGE PO PRN ×4 (02:14→20:00)
[2017-07-13] MEDS: CHLORHEXIDINE GLUCONATE 2 % 1 PACK (2 CLOTHS) TOP SCH (02:59)
[2017-07-13] MEDS: QUEtiapine FUMARATE 100 MG TAB PO SCH ×2 (06:26→19:58)
[2017-07-13] MEDS: CHLORHEXIDINE 0.12% (ORAL KIT) 15 ML CUP MT SCH (08:00)
[2017-07-13] MEDS: FAMOTIDINE 20 MG TAB PO SCH ×2 (08:50→19:58)
[2017-07-13] MEDS: ENOXAPARIN SODIUM 40 MG/0.4 ML SYRINGE SQ SCH ×2 (08:51→19:58)
[2017-07-13] MEDS: DOCUSATE SODIUM 50 MG/SENNA 8.6 MG TAB PO SCH ×2 (09:00→21:00)
[2017-07-13] MEDS: BISACODYL 10 MG SUPP RECTAL SCH ×2 (09:00→21:00)
[2017-07-13] MEDS: MAGNESIUM HYDROXIDE SUSP 30 ML CUP PO SCH ×2 (09:00→21:00)
[2017-07-13] MEDS: LACTULOSE SYRUP 20 GM/30 ML CUP PO SCH (09:00)
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
[2017-07-13] MEDS: LORazepam 1 MG TAB PO PRN (14:09)
[2017-07-13] MEDS: HYDROmorphone HCL PF 2 MG/ML VIAL IV PRN (17:42)
[2017-07-13] MEDS: RESP: BUDESONIDE 0.5 MG/2 ML NEB NEB SCH (19:22)
[2017-07-14] VITALS (9 sets, daily range): BP systolic 97–142; BP diastolic 52–78; PULSE 73–96; RESP 17–20; TEMP 95.8–98.1; O2SAT 95–100
[2017-07-14] MEDS: LORazepam 1 MG TAB PO PRN ×3 (00:33→20:40)
[2017-07-14] MEDS: HYDROmorphone HCL PF 2 MG/ML VIAL IV PRN ×3 (00:35→23:22)
[2017-07-14] MEDS: CHLORHEXIDINE 0.12% (ORAL KIT) 15 ML CUP MT SCH ×2 (08:00→20:00)
[2017-07-14] MEDS: RESP: BUDESONIDE 0.5 MG/2 ML NEB NEB SCH ×2 (08:00→20:14)
[2017-07-14] MEDS: FAMOTIDINE 20 MG TAB PO SCH ×2 (08:15→20:36)
[2017-07-14] MEDS: ENOXAPARIN SODIUM 40 MG/0.4 ML SYRINGE SQ SCH ×2 (08:15→20:36)
[2017-07-14] MEDS: QUEtiapine FUMARATE 100 MG TAB PO SCH ×2 (08:16→20:36)
[2017-07-14] MEDS: oxyCODONE HCL ORAL CONC 5 MG/0.25 ML SYRINGE PO PRN ×3 (08:16→20:40)
[2017-07-14] MEDS: DOCUSATE SODIUM 50 MG/SENNA 8.6 MG TAB PO SCH ×2 (08:17→20:56)
[2017-07-14] MEDS: LACTULOSE SYRUP 20 GM/30 ML CUP PO SCH (08:17)
[2017-07-14] MEDS: BISACODYL 10 MG SUPP RECTAL SCH ×2 (08:17→20:56)
[2017-07-14] MEDS: MAGNESIUM HYDROXIDE SUSP 30 ML CUP PO SCH ×2 (08:17→20:56)
--- NOTE | 2017-07-14 09:42 | RADRPT ---
EXAM DATE/TIME: 07/14/2017 09:25 [facility] COMPARISON: ANKLE LEFT LIMITED (AP&LAT), June 26, 2017, 22:27. ANKLE LEFT COMPLETE ([id number]), June 29 017, 16:32. INDICATIONS : Fracture MEDICAL HISTORY : None. SURGICAL HISTORY : None. ENCOUNTER: Initial ACUITY: 2 weeks PAIN SCORE: 0/10 LOCATION: Left ankle FINDINGS: Three view exam was performed of the left ankle. Postsurgical changes following open reduction and i nternal fixation of a tibiotalar fracture dislocation are noted. Ankle mortise is well aligned. Fixat ion screws are in stable position. There is continued evidence of mild soft tissue swelling. Comment fracture of the mid fibular shaft is again noted. CONCLUSION: Stable appearance of the left ankle status post ORIF of a fracture or dislocation. Anatomic alignment of the tibiotalar joint. Edgar Douglas MD on July 14, 2017 at 9:38 Board Certified Radiologist. This report was verified electronically.
--- NOTE | 2017-07-14 09:45 | RADRPT ---
EXAM DATE/TIME: 07/14/2017 09:27 [facility] COMPARISON: CT ANKLE RIGHT W/O CONTRAST, June 28, 2017, 17:28. INDICATIONS : Fracture. MEDICAL HISTORY : None. SURGICAL HISTORY : None. ENCOUNTER: Initial ACUITY: 2 weeks PAIN SCORE: 0/10 LOCATION: Right ankle FINDINGS: Three view exam was performed of the right ankle. The bony structures are in normal alignment. Frac ture of the lateral talus is again noted. Ankle mortise is well-maintained. Hindfoot alignment is int act. CONCLUSION: Stable right ankle following casting for a fracture talus. Edgar Douglas MD on July 14, 2017 at 9:41 Board Certified Radiologist. This report was verified electronically.
--- NOTE | 2017-07-14 09:49 | RADRPT ---
EXAM DATE/TIME: 07/14/2017 09:19 [facility] COMPARISON: WRIST LEFT COMPLETE ([id number]), June 26, 2017, 23:57. INDICATIONS : Fracture. MEDICAL HISTORY : None. SURGICAL HISTORY : None. ENCOUNTER: Initial ACUITY: 2 weeks PAIN SCORE: 7/10 LOCATION: Left wrist FINDINGS: Three view examination of the left wrist demonstrates persistent fracture at the radial aspect of the distal radial metaphysis with intra-articular extension. Anatomic detail is somewhat limited by over lying splint material but there is no significant bony bridging over the past 18 days.. CONCLUSION: 1. Stable fracture of the radial aspect of the distal radial metaphysis with intra-articular extensio n. 2. No significant interval bony bridging across the fracture fragment. Umesh Carbone MD on July 14, 2017 at 9:45 Board Certified Radiologist. This report was verified electronically.
--- NOTE | 2017-07-14 12:28 | PD.ORT.PN ---
Subjective Subjective Remarks Patient is awake, alert, and oriented. Patient communicates appropriately. Patient reports intermittent discomfort to the left wrist and bilateral ankles. Objective Vitals Vital Signs Date Time Temp Pulse Resp B/P (MAP) Pulse Ox O2 Delivery O2 Flow Rate FiO2 07/14/17 09:53 20 07/14/17 09:03 98 Nasal Cannula 2.00 07/14/17 08:00 97.9 96 17 132/78 (96) 98 07/14/17 08:00 98 Room Air 07/14/17 04:00 96.4 79 20 131/70 (90) 97 07/14/17 00:00 95.8 78 20 128/73 (91) 95 07/13/17 20:00 96.2 79 20 128/69 (88) 95 07/13/17 19:22 100 Nasal Cannula 2.00 07/13/17 19:00 Room Air 07/13/17 16:00 95.6 73 19 144/79 (100) 100 I/O 07/13/17 07/13/17 07/13/17 07/14/17 07/14/17 07/14/17 07:00 15:00 23:00 07:00 15:00 23:00 Intake Total 0 ml 0 ml Output Total 1800 ml 475 ml 745 ml Balance -1800 ml -475 ml -745 ml Intake Oral 0 ml 0 ml Output Urine Total 1800 ml 475 ml 745 ml # Bowel Movements 0 Result Diagram: 07/11/17 0422 07/11/17 0422 Imaging Last 24 hours Impressions Chest X-Ray 06/27/17 0600 Signed Impressions: Service Date/Time: Tuesday, June 27, 2017 03:38 - CONCLUSION: The lungs are clear. Perfecto Veloz MD Knee X-Ray 06/27/17 0000 Signed Impressions: Service Date/Time: Tuesday, June 27, 2017 00:49 - CONCLUSION: 1. Osseous structures about the knee are grossly intact. 2. Fracture mid shaft of the fibula, partially included in the [id number]. ePrfecto Veloz MD Thoracic Spine CT 06/26/172226 Signed Impressions: Service Date/Time: Monday, June 26, 2017 23:02 - CONCLUSION: Negative trauma CT of the thoracic spine. Perfecto Veloz MD Pelvis X-Ray 06/26/172226 Signed Impressions: Service Date/Time: Monday, June 26, 2017 22:27 - CONCLUSION: 1. The bony pelvic ring is grossly intact. Perfecto Veloz MD Lumbar Spine CT 06/26/172226 Signed Impressions: Service Date/Time: Monday, June 26, 2017 23:02 - CONCLUSION: Negative trauma CT lumbar spine. Perfecto Veloz MD Head CT 06/26/172226 Signed Impressions: Service Date/Time: Monday, June 26, 2017 22:57 - CONCLUSION: 1. No acute findings in the brain. Perfecto Veloz MD Chest X-Ray 06/26/172226 Signed Impressions: Service Date/Time: Monday, June 26, 2017 22:27 - CONCLUSION: Enlargement of the cardiac silhouette and superior mediastinum. Some of this may be projectional on this supine trauma chest x-ray. The patient is scheduled for CT examination of the chest. Sam Hsu MD Chest CT 06/26/172226 Signed Impressions: Service Date/Time: Monday, June 26, 2017 23:02 - CONCLUSION: 1. Minimally displaced fractures of the right 8 through 10th ribs. 2. Minimal bibasilar atelectasis. No evidence of pneumothorax. Perfecto Veloz MD Cervical Spine CT 06/26/172226 Signed Impressions: Service Date/Time: Monday, June 26, 2017 22:57 - CONCLUSION: Straightening of the cervical lordosis. Otherwise negative CT cervical spine. Perfecto Veloz MD Abdomen/Pelvis CT 06/26/172226 Signed Impressions: Service Date/Time: Monday, June 26, 2017 23:02 - CONCLUSION: 1. Mild soft tissue contusion subcutaneous soft tissues anterior abdominal wall. 2. Fat-containing left inguinal hernia. 3. Otherwise negative trauma CT abdomen/pelvis with contrast. Perfecto Veloz MD Objective Remarks Last 48 hours Impressions Wrist X-Ray 07/14/17 0000 Signed Impressions: Service Date/Time: June 09:19 - CONCLUSION: 1. Stable fracture of the radial aspect of the distal radial metaphysis with intra-articular extension. 2. No significant interval bony bridging across the fracture fragment. Umesh Carbone MD Ankle X-Ray 07/14/17 0000 Signed Impressions: Service Date/Time: June 09:27 - CONCLUSION: Stable right ankle following casting for a fracture talus. Edgar Douglas MD Ankle X-Ray 07/14/17 0000 Signed Impressions: Service Date/Time: June 09:25 - CONCLUSION: Stable appearance of the left ankle status post ORIF of a fracture or dislocation. Anatomic alignment of the tibiotalar joint. Edgar Douglas MD I have reviewed the images of the left wrist and bilateral ankles and agree with the radiologist's interpretation. LUE: +short arm splint. intact. NVI, minimal swelling and good movement of hand and fingers. LLE: Patient's splint and dressings are C/D/I. BCR X 5. Minimal swelling to foot and toes. Foot and toes are warm. Good sensation to light touch x 5. RLE: Patient's splint and dressings are C/D/I. BCR X 5. Minimal swelling to foot and toes. Foot and toes are warm. Good sensation to light touch x 5. Patient has tracheostomy. Multiple scratches to the bilateral lower extremities with no redness or s/s of infection. Patient able to communicate verbally and is appropriate when answering questions. Assessment & Plan Assessment and Plan 1) Left Radial Styloid Fx - nonop -NWB -maintain splint -Plan is to continue with nonoperative management. -XR of left wrist shows a nondisplaced radial styloid fracture with early callus. 2) POD #15: Left ankle open reduction internal fixation of bimalleolar (medial malleolus and posterior malleolus) fractures. Left ankle separate incisions for open reduction and internal fixation of distal tibiofibular ligament ( syndesmosis). -NWB -Lovenox for DVT prophylaxis -Maintain splint and dressings. -XRs of left ankle shows hardware is in good position with no complications. Mortise is intact. Displaced, comminuted fracture of fibular shaft. 3) Right Knee Pain -CT scans negative for fracture 4) Right Talus Fx - nonop -CT scan show lateral process fx of talus. well aligned -Plan is to continue with nonsurgical management -maintain splint and dressing. -NWB -XRs of right ankle shows a mildly displaced comminuted fracture of the lateral talus. Fracture is stable with signs of early callus. If patient remains in the hospital through next week I would recommend repeating XRs of the left wrist, left ankle, and right foot. Patient is stable orthopaedically for discharge once medically cleared and stable. F/U in the office post discharge with Dr. Venegas or RAMOS Kirk in the office. Jamel Knight Jul 14, 2017 12:28
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
[2017-07-15] VITALS (8 sets, daily range): BP systolic 112–144; BP diastolic 61–83; PULSE 79–90; RESP 16–20; TEMP 96.6–99.5; O2SAT 93–98
[2017-07-15] MEDS: CHLORHEXIDINE 0.12% (ORAL KIT) 15 ML CUP MT SCH ×2 (08:00→20:00)
[2017-07-15] MEDS: MAGNESIUM HYDROXIDE SUSP 30 ML CUP PO SCH ×2 (09:00→21:00)
[2017-07-15] MEDS: DOCUSATE SODIUM 50 MG/SENNA 8.6 MG TAB PO SCH ×2 (09:00→21:00)
[2017-07-15] MEDS: BISACODYL 10 MG SUPP RECTAL SCH ×2 (09:00→21:00)
[2017-07-15] MEDS: LACTULOSE SYRUP 20 GM/30 ML CUP PO SCH (09:00)
[2017-07-15] MEDS: FAMOTIDINE 20 MG TAB PO SCH ×2 (09:09→21:20)
[2017-07-15] MEDS: QUEtiapine FUMARATE 100 MG TAB PO SCH ×2 (09:09→21:20)
[2017-07-15] MEDS: oxyCODONE HCL ORAL CONC 5 MG/0.25 ML SYRINGE PO PRN ×2 (09:10→21:23)
[2017-07-15] MEDS: ENOXAPARIN SODIUM 40 MG/0.4 ML SYRINGE SQ SCH ×2 (09:11→21:21)
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
[2017-07-15] MEDS: HALOPERIDOL LACTATE 5 MG/ML AMP IV PRN (11:51)
[2017-07-15] MEDS: HYDROmorphone HCL PF 2 MG/ML VIAL IV PRN (11:51)
[2017-07-15] MEDS: SODIUM CHLORIDE 0.9% FLUSH 10 ML FLUSH IVF PRN (11:53)
[2017-07-15] MEDS: RESP: BUDESONIDE 0.5 MG/2 ML NEB NEB SCH ×2 (19:29→19:44)
[2017-07-16] VITALS (7 sets, daily range): BP systolic 114–132; BP diastolic 60–71; PULSE 72–108; RESP 16–21; TEMP 95.9–98.4; O2SAT 91–97
[2017-07-16] MEDS: oxyCODONE HCL ORAL CONC 5 MG/0.25 ML SYRINGE PO PRN ×3 (03:37→20:35)
[2017-07-16] MEDS: CHLORHEXIDINE 0.12% (ORAL KIT) 15 ML CUP MT SCH ×2 (08:00→20:00)
[2017-07-16] MEDS: RESP: BUDESONIDE 0.5 MG/2 ML NEB NEB SCH ×2 (08:33→21:25)
[2017-07-16] MEDS: BISACODYL 10 MG SUPP RECTAL SCH ×2 (09:00→20:49)
[2017-07-16] MEDS: LACTULOSE SYRUP 20 GM/30 ML CUP PO SCH (09:00)
[2017-07-16] MEDS: MAGNESIUM HYDROXIDE SUSP 30 ML CUP PO SCH ×2 (09:00→20:48)
[2017-07-16] MEDS: DOCUSATE SODIUM 50 MG/SENNA 8.6 MG TAB PO SCH ×2 (09:00→20:38)
[2017-07-16] MEDS: FAMOTIDINE 20 MG TAB PO SCH ×2 (09:04→20:49)
[2017-07-16] MEDS: QUEtiapine FUMARATE 100 MG TAB PO SCH ×2 (09:04→20:37)
[2017-07-16] MEDS: ENOXAPARIN SODIUM 40 MG/0.4 ML SYRINGE SQ SCH ×2 (09:05→20:37)
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
[2017-07-16] MEDS ORDERED: WHEEMIS3 (12:36)
[2017-07-16] MEDS ORDERED: BEDSIDE COMMODE1 MI1 (12:36)
[2017-07-16] MEDS ORDERED: HOSP BED1 (12:36)
[2017-07-16] MEDS ORDERED: TUB TRANSFER BO1 MIS (12:36)
[2017-07-16] MEDS: HALOPERIDOL LACTATE 5 MG/ML AMP IV PRN ×2 (15:12→20:37)
[2017-07-16] MEDS: SODIUM CHLORIDE 0.9% FLUSH 10 ML FLUSH IVF PRN (20:39)
[2017-07-17] VITALS (7 sets, daily range): BP systolic 122–157; BP diastolic 65–85; PULSE 72–79; RESP 18–20; TEMP 97–97.4; O2SAT 95–98
[2017-07-17] MEDS: oxyCODONE HCL ORAL CONC 5 MG/0.25 ML SYRINGE PO PRN ×2 (03:17→10:48)
[2017-07-17] MEDS: HALOPERIDOL LACTATE 5 MG/ML AMP IV PRN ×2 (03:17→10:48)
[2017-07-17] MEDS: SODIUM CHLORIDE 0.9% FLUSH 10 ML FLUSH IVF PRN ×2 (03:18→22:04)
[2017-07-17] MEDS: CHLORHEXIDINE 0.12% (ORAL KIT) 15 ML CUP MT SCH ×2 (08:00→20:00)
[2017-07-17] MEDS: RESP: BUDESONIDE 0.5 MG/2 ML NEB NEB SCH ×2 (08:18→19:38)
[2017-07-17] MEDS: RESP: ALBUTEROL 2.5 MG/IPRATROPIUM 0.5 MG NEB (PRN) NEB (08:18)
[2017-07-17] MEDS: MAGNESIUM HYDROXIDE SUSP 30 ML CUP PO SCH ×2 (09:00→21:00)
[2017-07-17] MEDS: BISACODYL 10 MG SUPP RECTAL SCH ×2 (09:00→21:00)
[2017-07-17] MEDS: LACTULOSE SYRUP 20 GM/30 ML CUP PO SCH (09:00)
[2017-07-17] MEDS: DOCUSATE SODIUM 50 MG/SENNA 8.6 MG TAB PO SCH ×2 (09:00→21:00)
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
[2017-07-17] MEDS: ENOXAPARIN SODIUM 40 MG/0.4 ML SYRINGE SQ SCH ×2 (10:47→22:03)
[2017-07-17] MEDS: QUEtiapine FUMARATE 100 MG TAB PO SCH ×2 (10:47→22:04)
[2017-07-17] MEDS: FAMOTIDINE 20 MG TAB PO SCH ×2 (10:47→22:03)
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
[2017-07-18] VITALS (7 sets, daily range): BP systolic 110–159; BP diastolic 56–81; PULSE 71–89; RESP 16–20; TEMP 96.5–97.4; O2SAT 94–100
[2017-07-18] MEDS: HALOPERIDOL LACTATE 5 MG/ML AMP IV PRN ×2 (03:35→23:19)
[2017-07-18] MEDS: oxyCODONE HCL ORAL CONC 5 MG/0.25 ML SYRINGE PO PRN ×2 (03:36→23:19)
[2017-07-18] MEDS: SODIUM CHLORIDE 0.9% FLUSH 10 ML FLUSH IVF PRN ×2 (03:36→08:57)
[2017-07-18 04:16] LABS: AUTOMATED NEUTROPHIL # 3.8 TH/MM3 (1.8-7.7); BASOPHIL % 0.7 % (0.0-2.0); EOSINOPHIL # 0.1 TH/MM3 (0-0.4); EOSINOPHIL % 2.3 % (0.0-4.0); HEMATOCRIT 37.2 % (39.0-51.0); HEMOGLOBIN 12.5 GM/DL (13.0-17.0); LYMPH % 21.1 % (9.0-44.0); LYMPHOCYTE # 1.2 TH/MM3 (1.0-4.8); MEAN CELL VOLUME 79.4 FL (80.0-100.0); MEAN CORPUSCULAR HEMOGLOBIN 26.6 PG (27.0-34.0); MEAN CORPUSCULAR HGB CONC 33.5 % (32.0-36.0); MEAN PLATELET VOLUME 7.2 FL (7.0-11.0); MONO % 9.4 % (0.0-8.0); MONOCYTE # 0.5 TH/MM3 (0-0.9); NEUT % 66.5 % (16.0-70.0); PLATELET COUNT 454 TH/MM3 (150-450); RED BLOOD COUNT 4.69 MIL/MM3 (4.50-5.90); RED CELL DISTRIBUTION WIDTH 15.7 % (11.6-17.2); WHITE BLOOD COUNT 5.7 TH/MM3 (4.0-11.0)
[2017-07-18 04:27] LABS: BICARBONATE 27.2 MEQ/L (21.0-32.0); CALCIUM 8.9 MG/DL (8.5-10.1); CREATININE 0.93 MG/DL (0.60-1.30)
[2017-07-18] MEDS: LACTULOSE SYRUP 20 GM/30 ML CUP PO SCH (08:56)
[2017-07-18] MEDS: MAGNESIUM HYDROXIDE SUSP 30 ML CUP PO SCH ×2 (08:56→20:37)
[2017-07-18] MEDS: DOCUSATE SODIUM 50 MG/SENNA 8.6 MG TAB PO SCH ×2 (08:56→20:37)
[2017-07-18] MEDS: BISACODYL 10 MG SUPP RECTAL SCH ×2 (08:56→20:38)
[2017-07-18] MEDS: QUEtiapine FUMARATE 100 MG TAB PO SCH ×2 (08:57→20:33)
[2017-07-18] MEDS: ENOXAPARIN SODIUM 40 MG/0.4 ML SYRINGE SQ SCH ×2 (08:57→20:34)
[2017-07-18] MEDS: FAMOTIDINE 20 MG TAB PO SCH ×2 (08:57→20:33)
[2017-07-18] MEDS: CHLORHEXIDINE 0.12% (ORAL KIT) 15 ML CUP MT SCH ×2 (09:02→20:00)
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
[2017-07-18] MEDS: RESP: BUDESONIDE 0.5 MG/2 ML NEB NEB SCH ×2 (10:32→20:13)
[2017-07-19] VITALS: BP 132/76; PULSE 82; RESP 20; TEMP 97.7; O2SAT 96
[2017-07-19 08:00] VITALS: BP 127/82; PULSE 84; RESP 18; TEMP 96.7; O2SAT 99
[2017-07-19] MEDS: RESP: BUDESONIDE 0.5 MG/2 ML NEB NEB SCH ×2 (08:00→20:33)
[2017-07-19] MEDS: FAMOTIDINE 20 MG TAB PO SCH ×2 (09:31→21:20)
[2017-07-19] MEDS: QUEtiapine FUMARATE 100 MG TAB PO SCH ×2 (09:31→21:20)
[2017-07-19] MEDS: ENOXAPARIN SODIUM 40 MG/0.4 ML SYRINGE SQ SCH ×2 (09:31→21:22)
[2017-07-19] MEDS: DOCUSATE SODIUM 50 MG/SENNA 8.6 MG TAB PO SCH ×2 (09:36→21:17)
[2017-07-19] MEDS: LACTULOSE SYRUP 20 GM/30 ML CUP PO SCH (09:36)
[2017-07-19] MEDS: BISACODYL 10 MG SUPP RECTAL SCH ×2 (09:36→21:17)
[2017-07-19] MEDS: CHLORHEXIDINE 0.12% (ORAL KIT) 15 ML CUP MT SCH ×2 (09:36→19:22)
[2017-07-19] MEDS: MAGNESIUM HYDROXIDE SUSP 30 ML CUP PO SCH ×2 (09:36→21:17)
[2017-07-19 12:00] VITALS: BP 143/79; PULSE 77; RESP 17; TEMP 97.7; O2SAT 95
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
[2017-07-19 16:00] VITALS: BP 133/74; PULSE 85; RESP 17; TEMP 97.3; O2SAT 98
[2017-07-19 20:00] VITALS: BP 140/86; PULSE 76; RESP 18; TEMP 97.1; O2SAT 98
[2017-07-19] MEDS: HALOPERIDOL LACTATE 5 MG/ML AMP IV PRN (21:23)
[2017-07-20] VITALS: BP 136/76; PULSE 70; RESP 18; TEMP 97; O2SAT 97
[2017-07-20] MEDS: HALOPERIDOL LACTATE 5 MG/ML AMP IV PRN (06:06)
[2017-07-20] MEDS: oxyCODONE HCL ORAL CONC 5 MG/0.25 ML SYRINGE PO PRN (06:08)
[2017-07-20 08:00] VITALS: BP 140/85; PULSE 78; RESP 17; TEMP 96.9; O2SAT 98
[2017-07-20] MEDS: CHLORHEXIDINE 0.12% (ORAL KIT) 15 ML CUP MT SCH ×2 (08:00→20:00)
[2017-07-20] MEDS: RESP: BUDESONIDE 0.5 MG/2 ML NEB NEB SCH ×2 (08:00→19:38)
[2017-07-20] MEDS: BISACODYL 10 MG SUPP RECTAL SCH ×2 (09:00→21:00)
[2017-07-20] MEDS: MAGNESIUM HYDROXIDE SUSP 30 ML CUP PO SCH ×2 (09:00→21:00)
[2017-07-20] MEDS: DOCUSATE SODIUM 50 MG/SENNA 8.6 MG TAB PO SCH ×2 (09:00→21:00)
[2017-07-20] MEDS: LACTULOSE SYRUP 20 GM/30 ML CUP PO SCH (09:00)
[2017-07-20] MEDS: FAMOTIDINE 20 MG TAB PO SCH ×2 (09:56→21:21)
[2017-07-20] MEDS: QUEtiapine FUMARATE 100 MG TAB PO SCH ×2 (09:56→21:21)
[2017-07-20] MEDS: ENOXAPARIN SODIUM 40 MG/0.4 ML SYRINGE SQ SCH ×2 (09:56→21:21)
[2017-07-20 12:00] VITALS: BP 140/81; PULSE 76; RESP 18; TEMP 97.6; O2SAT 96
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
[2017-07-20 16:00] VITALS: BP 131/77; PULSE 78; RESP 16; TEMP 96.8; O2SAT 97
[2017-07-20 19:38] VITALS: O2SAT 97
[2017-07-20 20:00] VITALS: BP 155/95; PULSE 72; RESP 16; TEMP 96.3; O2SAT 97
[2017-07-21] VITALS (7 sets, daily range): BP systolic 133–148; BP diastolic 74–89; PULSE 76–86; RESP 16–20; TEMP 96.8–98.4; O2SAT 93–99
[2017-07-21] MEDS: HALOPERIDOL LACTATE 5 MG/ML AMP IV PRN (06:35)
[2017-07-21] MEDS: CHLORHEXIDINE 0.12% (ORAL KIT) 15 ML CUP MT SCH ×2 (08:00→20:00)
[2017-07-21] MEDS: RESP: BUDESONIDE 0.5 MG/2 ML NEB NEB SCH ×2 (08:01→20:39)
[2017-07-21] MEDS: BISACODYL 10 MG SUPP RECTAL SCH ×2 (08:56→20:15)
[2017-07-21] MEDS: MAGNESIUM HYDROXIDE SUSP 30 ML CUP PO SCH ×2 (08:56→20:15)
[2017-07-21] MEDS: DOCUSATE SODIUM 50 MG/SENNA 8.6 MG TAB PO SCH ×2 (08:56→20:15)
[2017-07-21] MEDS: LACTULOSE SYRUP 20 GM/30 ML CUP PO SCH (08:56)
[2017-07-21] MEDS: QUEtiapine FUMARATE 100 MG TAB PO SCH ×2 (08:58→20:15)
[2017-07-21] MEDS: ENOXAPARIN SODIUM 40 MG/0.4 ML SYRINGE SQ SCH ×2 (08:58→20:15)
[2017-07-21] MEDS: FAMOTIDINE 20 MG TAB PO SCH ×2 (08:58→20:15)
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
[2017-07-22] VITALS: BP 137/76; PULSE 80; RESP 20; TEMP 97.6; O2SAT 98
[2017-07-22] MEDS: HALOPERIDOL LACTATE 5 MG/ML AMP IV PRN (03:31)
[2017-07-22 08:00] VITALS: BP 150/94; PULSE 82; RESP 16; TEMP 97.4; O2SAT 99
[2017-07-22] MEDS: CHLORHEXIDINE 0.12% (ORAL KIT) 15 ML CUP MT SCH (08:00)
[2017-07-22] MEDS: BISACODYL 10 MG SUPP RECTAL SCH (08:40)
[2017-07-22] MEDS: LACTULOSE SYRUP 20 GM/30 ML CUP PO SCH (08:40)
[2017-07-22] MEDS: MAGNESIUM HYDROXIDE SUSP 30 ML CUP PO SCH (08:40)
[2017-07-22] MEDS: DOCUSATE SODIUM 50 MG/SENNA 8.6 MG TAB PO SCH (08:40)
[2017-07-22] MEDS: ENOXAPARIN SODIUM 40 MG/0.4 ML SYRINGE SQ SCH (08:52)
[2017-07-22] MEDS: QUEtiapine FUMARATE 100 MG TAB PO SCH (08:52)
[2017-07-22] MEDS: FAMOTIDINE 20 MG TAB PO SCH (08:52)
[2017-07-22] MEDS: RESP: BUDESONIDE 0.5 MG/2 ML NEB NEB SCH (08:56)
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
== END 2017-07-22 09:36 | disposition home health service (06) | DRG 3 ==
LOC: NEPD 22:07 → NEDA 23:58 → N03A 06-27 01:39 → N07A 07-12 13:58
PROVIDERS: ADMIT Surgery Trauma Surgery; ATTEND Surgery Trauma Surgery
PROC: 0HQHXZZ Repair Right Upper Leg Skin, External Approach (ICD-10-PCS; 2017-06-26)
PROC: 5A1955Z Respiratory Ventilation, Greater than 96 Consecutive Hours (ICD-10-PCS; 2017-06-27)
PROC: 5A09357 Assistance with Respiratory Ventilation, Less than 24 Consecutive Hours, Continuous Positive Airway Pressure (ICD-10-PCS; 2017-06-27)
PROC: 0BH18EZ Insertion of Endotracheal Airway into Trachea, Via Natural or Artificial Opening Endoscopic (ICD-10-PCS; 2017-06-27)
PROC: 02HV33Z Insertion of Infusion Device into Superior Vena Cava, Percutaneous Approach (ICD-10-PCS; 2017-06-27)
PROC: 0QHH04Z Insertion of Internal Fixation Device into Left Tibia, Open Approach (ICD-10-PCS; 2017-06-29)
PROC: 0SSG04Z Reposition Left Ankle Joint with Internal Fixation Device, Open Approach (ICD-10-PCS; 2017-06-29)
PROC: 0QHH04Z Insertion of Internal Fixation Device into Left Tibia, Open Approach (ICD-10-PCS; principal; 2017-06-29 15:28)
PROC: 0BH18EZ Insertion of Endotracheal Airway into Trachea, Via Natural or Artificial Opening Endoscopic (ICD-10-PCS; 2017-06-30)
PROC: 0B113F4 Bypass Trachea to Cutaneous with Tracheostomy Device, Percutaneous Approach (ICD-10-PCS; 2017-07-01)
PROC: 5A1955Z Respiratory Ventilation, Greater than 96 Consecutive Hours (ICD-10-PCS; 2017-07-01)
DX: S82.842A Displaced bimalleolar fracture of left lower leg, initial encounter for closed fracture (principal); G93.41 Metabolic encephalopathy; E87.2 Acidosis; F05 Delirium due to known physiological condition; I95.9 Hypotension, unspecified; S22.41XA Multiple fractures of ribs, right side, initial encounter for closed fracture; J96.01 Acute respiratory failure with hypoxia; J96.02 Acute respiratory failure with hypercapnia; Z68.41 Body mass index [BMI] 40.0-44.9, adult; S27.321A Contusion of lung, unilateral, initial encounter; S52.515A Nondisplaced fracture of left radial styloid process, initial encounter for closed fracture; S93.432A Sprain of tibiofibular ligament of left ankle, initial encounter; E66.01 Morbid (severe) obesity due to excess calories; S71.111A Laceration without foreign body, right thigh, initial encounter; S82.402A Unspecified fracture of shaft of left fibula, initial encounter for closed fracture; G47.33 Obstructive sleep apnea (adult) (pediatric); S30.1XXA Contusion of abdominal wall, initial encounter; R50.9 Fever, unspecified; S92.101A Unspecified fracture of right talus, initial encounter for closed fracture; F43.10 Post-traumatic stress disorder, unspecified; G47.419 Narcolepsy without cataplexy; Z91.19 Patient's noncompliance with other medical treatment and regimen; V44.5XXA Car driver injured in collision with heavy transport vehicle or bus in traffic accident, initial encounter; Y92.411 Interstate highway as the place of occurrence of the external cause
CPT/HCPCS: 12005; 29125; 31500; 36556; 36600; 70450; 71010; 71260; 72125; 72128; 72131; 72170; 73110; 73564; 73590; 73600; 73610; 73700; 74000; 74177; 76000; 76937; 80048; 80053; 80202; 81001; 82435; 82565; 82805; 82947; 83735; 84100; 84132; 84295; 84520; 85007; 85025; 85027; 85610; 85730; 86850; 86900; 86901; 87040; 87070; 87086; 87205; 87641; 93306; 94002; 94003; 94640; 94664; 96365; 96375; 96376; A7520; C1713; J0131; J0690; J1170; J1580; J1630; J1650; J1885; J1940; J1956; J2250; J2270; J2405; J2543; J3010; J3370; J7030; J7040; J7050; J7120; J7608; J7613; J7626; L0150; Q9967